=== PATIENT | female | born 1955 | race Caucasian/White ===

== ENCOUNTER 2020-04-23 11:53 | Outpatient (NON) | payer MEDICARE, SELFPAY ==
[2020-04-23 21:44] LABS: SARS-CoV-2 RNA PCR Negative
== END 2020-04-23 11:54 ==
LOC: ANHCOVIDDT 11:55
PROVIDERS: PCP Family Medicine; Visit Provider Nurse Practitioner Family
DX: R42 Dizziness and giddiness (principal); R11.0 Nausea; Z20.822 Contact with and (suspected) exposure to COVID-19
CPT/HCPCS: C9803; U0003; U0005

== ENCOUNTER 2020-06-12 11:53 | Outpatient (CLI) | payer MEDICARE, SELFPAY ==
[2020-06-12 12:20] LABS: Basophils Absolute Auto 0.1 K/mm3 (0.0-0.1); Basophils Percent Auto 0.7 % (0.2-1.2); Eosinophils Absolute Auto 0.3 K/mm3 (0-0.3); Eosinophils Percent Auto 2.6 % (0-4.4); Hematocrit 44.8 % (37.0-47.0); Hemoglobin 15.1 g/dL (12.0-15.0); Immature Granulocyte Absolute 0.02 K/mm3 (0.00-0.031); Immature Granulocyte Percent A 0.2 % (0-0.5); Lymphocytes Absolute Auto 2.61 K/mm3 (0.9-3.2); Lymphocytes Percent Auto 26.2 % (18.3-44.2); Mean Corpuscular HGB Conc 33.7 g/dl (32-36); Mean Corpuscular Hemoglobin 30.9 pg (26-34); Mean Corpuscular Volume 91.8 fl (80-100); Mean Platelet Volume 9.5 fl (7.4-10.4); Monocytes Absolute Auto 0.9 K/mm3 (0.1-0.6); Monocytes Percent Auto 8.8 % (2.6-8.5); Neutrophils Absolute Auto 6.1 K/mm3 (1.3-6.7); Neutrophils Percent Auto 61.5 % (45.5-73.1); Platelet Count Result 308 k/mm3 (150-375); Red Blood Count 4.88 M/mm3 (4.2-5.4); Red Cell Distribution Width 11.9 % (11.5-14.5)
[2020-06-12 12:42] LABS: Alanine Aminotransferase 11 U/L (4-35); Albumin Level 4.2 g/dL (3.5-5.1); Alkaline Phosphatase 95 U/L (38-126); Anion Gap 5 mmol/L (8-16); Aspartate Amino Transferase 26 U/L (14-36); Bilirubin,Total 0.5 mg/dL (0.2-1.3); Blood Urea Nitrogen 11 mg/dL (7-17); Calcium 9.7 mg/dL (8.4-10.2); Carbon Dioxide 31 mmol/L (22-30); Chloride 103 mmol/L (98-107); Estimated Glomerular Filt Rate > 60; Glucose 97 mg/dL (65-105); Magnesium 1.9 mg/dL (1.6-2.3); Potassium 4.1 mmol/L (3.4-5.0); Sodium 139 mmol/L (137-145)
== END 2020-06-12 11:54 | disposition home or self-care (01) ==
LOC: ANHLAB 11:55
PROVIDERS: PCP Family Medicine; Visit Provider Family Medicine
DX: I10 Essential (primary) hypertension (principal)
CPT/HCPCS: 36415; 80053; 83735; 84443; 85025

== ENCOUNTER → 2020-10-07 12:08 | Outpatient (CLI) | payer MEDICARE, SELFPAY ==
--- NOTE | ~2020-10-07 | MM_ITS ---
EXAMINATION: MM screening [facility] BI w jerrod HISTORY: Screening mammogram TECHNIQUE: Craniocaudal and mediolateral oblique 3-D tomosynthesis images were obtained and synthetic 2-D images were generated. CAD analysis was submitted and interpreted. COMPARISON: 08/08/2013, 07/25/2013, 04/26/2012, 04/20/2012 BREAST PARENCHYMAL COMPOSITION: The breasts are heterogeneously dense, which may obscure small masses . FINDINGS: There is no evidence of suspicious mass, calcification, or architectural distortion to sugg est malignancy in either breast. There has been no suspicious interval change. IMPRESSION: 1. No mammographic evidence of malignancy. 2. Recommend routine screening mammography in one year. BI-RADS Category 1: Negative Reviewed, dictated and finalized at location A.
--- NOTE | ~2020-10-07 | DEXA_ITS ---
Bone Density Report Name: Rosalinda Galo Age: 65 Sex: Female Ethnicity: White Date of : 1955 Indication: postmenopausal; screening for osteoporosis; asthma or emphysema; Referring Provider: Marco Antonio Beatty Study: Bone densitometry was performed. Exam Date: October 07, 2020 Accession number: [id number] Bone Density: Region BMD T-score Z-score Classification AP Spine (L1-L4) 0.986 -0.6 1.3 Normal Femoral Neck (Left) 0.783 -0.6 1.0 Normal Total Hip (Left) 0.929 -0.1 1.2 Normal Femoral Neck (Right) 0.768 -0.7 0.9 Normal Total Hip (Right) 0.946 0.0 1.3 Normal Total Hip Mean 0.938 -0.1 1.3 Normal World Health Organization criteria for BMD impression classify patients as: Normal (T-score at or above -1.0), Osteopenia (T-score between -1.0 and -2.5), or Osteoporosis (T-score at or below -2.5). 10-year Fracture Risk: FRAX not reported because: All T-scores for Spine Total, Hip Total, Femoral Neck at or above -1.0 Previous Exams: Region Exam Age BMD T-score BMD Change BMD Change Date g/cm2 vs Baseline vs Previous AP Spine(L1-L4) 10/07/2020 65 0.986 -0.6 -0.065* -0.124* 12/29/2010 55 1.111 0.6 0.059* 0.046* 10/22/2007 52 1.064 0.2 0.013 0.013 06/21/2004 49 1.051 0.0 Total Hip(Left) 10/07/2020 65 0.929 -0.1 -0.033 -0.070* 12/29/2010 55 0.999 0.5 0.037 0.017 10/22/2007 52 0.982 0.3 0.020 -0.064* 06/21/2004 49 1.046 0.9 0.084 0.084 05/03/2002 47 0.962 0.2 Total Hip(Right) 10/07/2020 65 0.946 0.0 -0.067 -0.059* 12/29/2010 55 1.006 0.5 -0.007 0.016 10/22/2007 52 0.990 0.4 -0.023 -0.066* 06/21/2004 49 1.056 0.9 0.043 0.043 05/03/2002 47 1.013 0.6 *Denotes significance at 95% confidence level, LSC for AP Spine = 0.022 g/cm2, LSC for Total Hip = 0.027 g/cm2 Clinical Information Provided by Patient: Has used the following medications: Vitamin D, Calcium Has the following medical conditions: Asthma or Emphysema Patient maximum height was 64 Menopause Age: 46 No regular weight bearing exercise Drinks caffeinated beverages Onset of menses at age 14 Number of children 2 Impression: The patient has normal bone mass. The BMD for the AP Spine(L1-L4) decreased, changing by -0.124 since
== END ==
PROVIDERS: PCP Family Medicine; Visit Provider Obstetrics & Gynecology
DX: Z12.31 Encounter for screening mammogram for malignant neoplasm of breast (principal); Z78.0 Asymptomatic menopausal state
CPT/HCPCS: 77063; 77067; 77080

== ENCOUNTER → 2021-10-05 11:02 | Outpatient (CLI) | payer MEDICARE, SELFPAY ==
--- NOTE | ~2021-10-05 | XR_ITS ---
EXAMINATION: XR thoracic spine 3V DATE: 10/05/2021 11:56 INDICATION: Thoracic spine pain TECHNIQUE: AP, lateral and lateral swimmer's views of the thoracic spine were obtained. COMPARISON: 09/29/2016 FINDINGS: Bone alignment is normal. There is no fracture. There is moderate loss of intervertebral di sc space height at multiple levels in the thoracic spine. The vertebral body heights are normal. Smal l degenerative osteophytes project from the anterior endplates of multiple vertebral bodies. IMPRESSION: 1. Moderate thoracic spondylosis without acute findings. Reviewed, dictated and finalized at location B.
--- NOTE | ~2021-10-05 | XR_ITS ---
XR hip RT min 2V DATE: 10/05/2021 11:56 INDICATION: Right hip pain TECHNIQUE: AP and lateral views COMPARISON: None FINDINGS: There is mild ostearthritis. No fracture or dislocation or bone destruction. IMPRESSION: Mild osteoarthritis Reviewed, dictated and finalized at location A. IMPRESSION: Mild osteoarthritis
--- NOTE | ~2021-10-05 | XR_ITS ---
XR lumbar spine 6V w bending DATE: 10/05/2021 11:56 INDICATION: Low back pain TECHNIQUE: AP, lateral, coned lateral lumbosacral, flexion and extension lateral views COMPARISON: None FINDINGS: There is diffuse osteopenia. There is degenerative spurring of the lower thoracic spine. There is mild likely chronic anterior wedging of L1. There is degenerative change at the apophyseal joints with grade 1 anterolisthesis at L4-5 and L5-S1. There is moderately severe degenerative disc disease at L1-2 and moderate degenerative disc disease a t the remainder of the lumbar spine. No fracture or bone destruction. The pedicles are intact. The sacroiliac joints are normal. Status post cholecystectomy. Abdominal aortic and iliac artery calcification. IMPRESSION: Osteopenia Multilevel degenerative disc disease Grade 1 anterolisthesis at L4-5 and L5-S1 Reviewed, dictated and finalized at location A.
== END ==
PROVIDERS: PCP Family Medicine; Visit Provider Family Medicine
DX: M54.50 Low back pain, unspecified (principal); M25.551 Pain in right hip; M16.11 Unilateral primary osteoarthritis, right hip; M85.88 Other specified disorders of bone density and structure, other site; M51.36 Other intervertebral disc degeneration, lumbar region; M43.17 Spondylolisthesis, lumbosacral region; M47.814 Spondylosis without myelopathy or radiculopathy, thoracic region
CPT/HCPCS: 72072; 72114; 73502

== ENCOUNTER → 2021-10-11 14:04 | Outpatient (CLI) | payer MEDICARE, SELFPAY ==
--- NOTE | ~2021-10-11 | MM_ITS ---
EXAMINATION: MM screening [facility] BI w jerrod HISTORY: Screening mammogram TECHNIQUE: Craniocaudal and mediolateral oblique 3-D tomosynthesis images were obtained and synthetic 2-D images were generated. CAD analysis was submitted and interpreted. COMPARISON: 10/07/2020, 08/08/2013, 07/25/2013 BREAST PARENCHYMAL COMPOSITION: There are scattered areas of fibroglandular density. FINDINGS: There is no suspicious mass, calcification, or architectural distortion to suggest malignan cy in either breast. There has been no suspicious interval change. IMPRESSION: 1. No mammographic evidence of malignancy. 2. Recommend routine screening mammography in one year. BI-RADS Category 1: Negative Reviewed, dictated and finalized at location A.
== END ==
PROVIDERS: PCP Family Medicine; Visit Provider Nurse Practitioner Obstetrics & Gynecology
DX: Z12.31 Encounter for screening mammogram for malignant neoplasm of breast (principal)
CPT/HCPCS: 77063; 77067

== ENCOUNTER 2022-03-15 13:40 | Outpatient (CLI) | payer MEDICARE, SELFPAY ==
--- NOTE | ~2022-03-15 | MR_ITS ---
EXAMINATION: MR lumbar spine wo con DATE: 03/15/2022 14:22 INDICATION: Lumbar radiculopathy. Low back pain radiating to the right hip. TECHNIQUE: Magnetic resonance imaging (MRI) of the lumbar spine was performed without intravenous con trast. Sequences included sagittal T2-weighted FSE, sagittal T2-weighted FS FSE, sagittal T1-weighted FSE, and axial T2-weighted FSE. COMPARISON: Lumbar spine radiographs 10/05/2021 FINDINGS: There is 7 degrees dextrocurvature of thoracolumbar spine. There is 3 mm anterolisthesis of L5 on S1. There are Schmorl's nodes at multiple levels. There is mildly decreased disc height at L3- L4, L4-L5, and L5-S1. The distal spinal cord signal intensity is normal. The conus medullaris is at L 1. The following disc levels are specifically discussed: L1-L2: The disc is bulging. There is mild bilateral facet joint osteoarthritis. There is no neural fo raminal stenosis. There is mild central canal stenosis. L2-L3: The disc is bulging. There is mild bilateral facet joint osteoarthritis. There is mild bilater al neural foraminal stenosis. There is mild central canal stenosis. L3-L4: The disc is bulging. There is mild right and moderate left facet joint osteoarthritis. There i s mild right and moderate left neural foraminal stenosis. There is mild central canal stenosis. L4-L5: The disc is bulging and has an annular fissure. There is mild bilateral facet joint osteoarthr itis. There is moderate right and mild left neural foraminal stenosis. There is mild central canal st enosis. L5-S1: The disc is bulging and has an annular fissure. There is severe bilateral facet joint osteoart hritis. There is moderate right and mild left neural foraminal stenosis. There is mild central canal stenosis. IMPRESSION: 1. Moderate lumbar spondylosis. Reviewed, dictated and finalized at location A. LCHAIR VAN DRIVER
== END 2022-03-15 13:41 | disposition home or self-care (01) ==
PROVIDERS: PCP Family Medicine; Visit Provider Family Medicine
DX: M51.36 Other intervertebral disc degeneration, lumbar region (principal); M47.816 Spondylosis without myelopathy or radiculopathy, lumbar region
CPT/HCPCS: 72148

== ENCOUNTER 2022-05-12 12:25 | Outpatient (CLI) | payer MEDICARE, SELFPAY ==
--- NOTE | ~2022-05-12 | MR_ITS ---
EXAMINATION: MR cervical spine wo con DATE: 05/12/2022 13:21 INDICATION: Neck pain. TECHNIQUE: Magnetic resonance imaging (MRI) of the cervical spine was performed without intravenous c ontrast. Sequences included sagittal T2-weighted FSE, sagittal T2-weighted FS FSE, sagittal T1-weight ed FSE, axial MERGE, and axial T2-weighted FSE. COMPARISON: None FINDINGS: There is 3 degrees dextrocurvature of cervical spine. Vertebral body heights are normal. Th ere is moderately decreased disc height at C4-C5 and C5-C6 and mildly decreased disc height at C6-C7. The spinal cord signal intensity is normal. The following disc levels are specifically discussed: C2-C3: The disc does not extend beyond the endplate margin. There is severe right uncovertebral joint osteoarthritis. There is no facet joint osteoarthritis. There is mild right neural foraminal stenosi s. There is no central canal stenosis. C3-C4: There is a central extrusion. There is mild left uncovertebral joint osteoarthritis. There is moderate left facet joint osteoarthritis. There is mild left neural foraminal stenosis. There is mild central canal stenosis with ventral indentation of the spinal cord. C4-C5: The disc is bulging. There is severe bilateral uncovertebral joint osteoarthritis. There is no facet joint osteoarthritis. There is severe bilateral neural foraminal stenosis. There is moderate c entral canal stenosis with ventral and dorsal indentation of the spinal cord. C5-C6: The disc is bulging with superimposed central extrusion. There is severe bilateral uncovertebr al joint osteoarthritis. There is no facet joint osteoarthritis. There is moderate bilateral neural f oraminal stenosis. There is severe central canal stenosis with ventral and dorsal indentation of the spinal cord. C6-C7: The disc is bulging with superimposed central extrusion. There is mild right and severe left u ncovertebral joint osteoarthritis. There is mild right and moderate left facet joint osteoarthritis. There is mild left neural foraminal stenosis. There is mild central canal stenosis. C7-T1: There is a central protrusion. There is no uncovertebral joint osteoarthritis. There is mild r ight and moderate left facet joint osteoarthritis. There is mild left neural foraminal stenosis. Ther e is mild central canal stenosis. IMPRESSION: 1. Severe cervical spondylosis. Reviewed, dictated and finalized at location A. CLEANER
--- NOTE | ~2022-05-12 | MR_ITS ---
EXAMINATION: MR hip RT wo con DATE: 05/12/2022 13:35 INDICATION: Chronic right hip pain TECHNIQUE: Magnetic resonance imaging (MRI) of the right hip was performed without intravenous contr ast. Sequences included full-field axial PD-weighted FS FSE and T1-weighted FSE, coronal of the pelvi s with PD-weighted FS FSE, small field of view of the affected hip with axial PD-weighted FS FSE, sa gittal PD-weighted FS FSE and coronal PD weighted FS FSE. Additional radial T1-weighted FGR oriented orthogonal to the acetabular rim were obtained for evaluation of the labrum. COMPARISON: None FINDINGS: Bones/labrum/cartilage: Alignment is normal. No fracture. Small peripherally low signal intensity, centrally high T1 signal intensity lesion at the left sacral ala with a low signal corresponding to dense sclerosis on the angela or CT most consistent with either a chronic bone infarct or an irregularly-shaped bone island. No oth er pathologic marrow replacing process. No osteonecrosis of the femoral heads. There is osteoarthriti s at the bilateral hips with subarticular cystlike changes consistent with overlying high-grade chond romalacia along the anterosuperior to superolateral aspects the bilateral acetabula. On the smaller f ield of view imaging of the right hip. There is corresponding mild nonuniform partial-thickness carti stewart loss and with superimposed deep chondral fissuring in the regions of the acetabular subarticular cystic change. There is a linear fluid signal intensity tear involving the majority of the right higinio tabular labrum extending from the 2:00 position anteriorly to the 8:00 position posteriorly. No defin itive tear seen of the left acetabular labrum however evaluation is significantly more limited on the larger [id number] images. Moderate lumbar spondylosis. Fluid: Symmetric physiologic amount of fluid within both hip joints. Soft tissues: Normal and symmetric muscle bulk and signal in the pelvis and visualized proximal thighs. Mild bilate ral gluteus minimus tendinopathy without tear but with associated moderate sized enthesophytes at the greater trochanteric insertions. The bilateral iliopsoas, remaining gluteal and proximal hamstring t endons are normal. Limited evaluation of visceral organs of the pelvis is unremarkable. No pathologi dianne enlarged pelvic/inguinal lymphadenopathy. IMPRESSION: 1. Mild to moderate osteoarthritis at the bilateral hips with extensive tear of the right acetabular labrum. 2. Chronic enthesopathy with enthesophytes and mild tendinopathy at the distal bilateral gluteus mini mus tendons. Reviewed, dictated and finalized at location A. AND GAS RECRUITER IMPRESSION: 1. Mild to moderate osteoarthritis at the bilateral hips with extensive tear of the right acetabular labrum. 2. Chronic enthesopathy with enthesophytes and mild tendinopathy at the distal bilateral gluteus minimus tendons.
== END 2022-05-12 12:26 | disposition home or self-care (01) ==
PROVIDERS: PCP Family Medicine; Visit Provider Nurse Practitioner Family
DX: R20.2 Paresthesia of skin (principal); M50.10 Cervical disc disorder with radiculopathy, unspecified cervical region; M16.0 Bilateral primary osteoarthritis of hip; M76.02 Gluteal tendinitis, left hip; M76.01 Gluteal tendinitis, right hip; M43.02 Spondylolysis, cervical region
CPT/HCPCS: 72141; 73721

== ENCOUNTER → 2022-07-06 09:56 | Outpatient (CLI) | payer MEDICARE, SELFPAY ==
--- NOTE | ~2022-07-06 | XR_ITS ---
EXAMINATION: XR chest 2V DATE: 07/06/2022 10:31 INDICATION: Cough. Chest tightness. TECHNIQUE: Frontal and lateral views of the chest were obtained. COMPARISON: Chest 2 views 07/28/2018, CT abdomen and pelvis 07/28/2018 FINDINGS: There is mild atelectasis in the lower lung zones. There is mild scarring at the lung apice s. No pleural effusion or pneumothorax. The heart size is normal. Surgical clips in the right upper q uadrant are likely from cholecystectomy. IMPRESSION: 1. Mild scarring at the lung apices and mild atelectasis in the lower lung zones. Reviewed, dictated and finalized at location A. IMPRESSION: 1. Mild scarring at the lung apices and mild atelectasis in the lower lung zone s.
== END ==
PROVIDERS: PCP Family Medicine; Visit Provider Nurse Practitioner Family
DX: J98.11 Atelectasis (principal); J98.4 Other disorders of lung; R05.9 Cough, unspecified; R07.89 Other chest pain; J44.9 Chronic obstructive pulmonary disease, unspecified; Z87.891 Personal history of nicotine dependence
CPT/HCPCS: 71046

== ENCOUNTER 2022-07-15 15:17 | Outpatient (CLI) | payer MEDICARE, SELFPAY ==
[2022-07-15 15:54] LABS: Appearance Urine Clear (Clear); Bilirubin Urine Negative (Negative); Blood Urine Negative (Negative); Color Urine Yellow (Yellow); Glucose Urine UA Negative (Negative); Ketones Urine Negative (Negative); Leukocyte Esterase Ur Negative LEU/UL (NEGATIVE); Nitrate Urine Negative (Negative); Protein Urine Negative (Negative); Specific Grav Ur 1.006 (1.001-1.035); Urobilinogen Urine 0.2 mg/dL (<2.0)
[2022-07-15 16:15] LABS: Add Urine Microscopic? NO
== END 2022-07-15 15:18 | disposition home or self-care (01) ==
PROVIDERS: PCP Family Medicine
DX: Z01.818 Encounter for other preprocedural examination (principal)
CPT/HCPCS: 81003

== ENCOUNTER 2022-12-09 09:33 | Outpatient (CLI) | payer MEDICARE, SELFPAY ==
--- NOTE | 2022-12-09 10:04 | EST_ITS ---
Patient Info Name: Rosalinda Galo Age: 67 years : 1955 Gender: Female Ht: 62 in Wt: 160 lbs BSA: 1.81 m2 HR: 83 bpm BP: 143 / 79 mmHg Exam Date: 12/09/2022 10:14 AM Exam Location: [facility] Stress Patient Status: Outpatient Admit Date: 12/09/2022 Staff Ordering Physician: Elvira Benjamin Attending Provider: Elvira Benjamin Exercise Technologist: Jessica Diane CT Exercise Physician: Aba Olmos DO Exam Type: CA stress test treadmill Study Info An exercise stress test was performed. Summary 1. 1. Negative Seamus exercise stress test for ischemic ST changes by ECG criteria. 2. 2. Reduced functional capacity, achieving 6 METs of workload. 3. 3. Baseline hypertension. 4. 4. Appropriate HR response to exercise. 5. 5. Appropriate HR recovery at 1 minute post exercise. 6. 6. No imaging with stress testing. 7. 7. Patient informed of the above results. Protocol: Seamus Stress ECG Details Stage: REST Duration (min): 1 min : 58 sec Speed (mph): 0.0 Grade (%): 0 HR (bpm): 86 SBP (mmHg): 143 DBP (mmHg): 79 METS: --- Stage: REST Duration (min): 9 min : 46 sec Speed (mph): 0.0 Grade (%): 0 HR (bpm): 105 SBP (mmHg): 143 DBP (mmHg): 79 METS: --- Stage: STAGE 1 Duration (min): 1 min : 0 sec Speed (mph): 1.7 Grade (%): 10 HR (bpm): 114 SBP (mmHg): 143 DBP (mmHg): 79 METS: --- Stage: STAGE 1 Duration (min): 2 min : 0 sec Speed (mph): 1.7 Grade (%): 10 HR (bpm): 122 SBP (mmHg): 143 DBP (mmHg): 79 METS: --- Stage: STAGE 1 Duration (min): 3 min : 0 sec Speed (mph): 1.7 Grade (%): 10 HR (bpm): 125 SBP (mmHg): 186 DBP (mmHg): 98 METS: --- Stage: STAGE 2 Duration (min): 1 min : 0 sec Speed (mph): 2.5 Grade (%): 12 HR (bpm): 136 SBP (mmHg): 186 DBP (mmHg): 98 METS: --- Stage: STAGE 2 Duration (min): 1 min : 2 sec Speed (mph): 2.5 Grade (%): 12 HR (bpm): 136 SBP (mmHg): 186 DBP (mmHg): 98 METS: --- Stage: RECOVERY Duration (min): 0 min : 57 sec Speed (mph): 0.0 Grade (%): 0 HR (bpm): 120 SBP (mmHg): 190 DBP (mmHg): 91 METS: --- Stage: RECOVERY Duration (min): 1 min : 42 sec Speed (mph): 0.0 Grade (%): 0 HR (bpm): 109 SBP (mmHg): 190 DBP (mmHg): 91 METS: --- Rest HR: 105 bpm Peak HR: 136 bpm Rest Sys BP: 143 mmHg Peak Sys BP: 190 mmHg Max Pred HR: 152 bpm % Max Pred HR: 89 % Target HR: 129 bpm Max RPP: 25,840 bpm*mmHg Tucker Score: 0 Termination Reason: Reached target heart rate or workload Cardiac Symptoms: Shortness of breath Max ST Seg Deviation: -0.90 mm Total Time: 4 min : 2 sec Rest Hewitt BP: 79 mmHg Peak Hewitt BP: 91 mmHg Angina Score: None Total METS: 6.5 Resting ECG Sinus rhythm. Stress ECG No ST changes. Arrhythmias None. Report Signatures
== END 2022-12-09 09:34 | disposition home or self-care (01) ==
LOC: ANHCARD 09:34
PROVIDERS: PCP Family Medicine; Visit Provider Nurse Practitioner Family
DX: E78.2 Mixed hyperlipidemia (principal); K21.9 Gastro-esophageal reflux disease without esophagitis; R07.89 Other chest pain
CPT/HCPCS: 93017

== ENCOUNTER 2023-09-27 14:31 | Emergency (ER) | payer MEDICARE, SELFPAY ==
--- NOTE | ~2023-09-27 | XR_ITS ---
EXAMINATION: XR chest 2V DATE: 09/27/2023 14:51 INDICATION: Stabbing chest pain TECHNIQUE: AP and lateral views of the chest were obtained. COMPARISON: Chest radiograph dated 07/06/2022 FINDINGS: Linear discoid atelectasis is seen in the bilateral lower lungs on the frontal projection. There are additional indistinct and mild airspace opacities in the posterior lower lungs on the lateral project ion. No pleural effusion or pneumothorax. Cardiomediastinal silhouette is within normal limits for AP technique. Cholecystectomy clips in right upper quadrant. Plate and screw fixation for lower cervica l anterior spinal fusion. Moderate thoracic spondylosis. IMPRESSION: 1. Opacities at the dependent bilateral lower lungs which could represent atelectasis, pneumonia or m ild pulmonary edema. Reviewed, dictated and finalized at location B. IMPRESSION: 1. Opacities at the dependent bilateral lower lungs which could represent atele ctasis, pneumonia or mild pulmonary edema.
--- NOTE | 2023-09-27 14:32 | ECG_ITS ---
Test Date: 2023-09-27 14:38:52 Measurements Intervals [place] Rate: 79 P: 41 DE: 165 QRS: -15 QRSD: 98 T: 12 QT: 358 QTc: 412 Interpretive Statements SINUS RHYTHM MODERATE VOLTAGE CRITERIA FOR LVH, CONSIDER NORMAL VARIANT [MEETS CRITERIA IN ONE OF: R(aVL), S(V1), R(V5), R(V5/V6)+S(V1)] No previous ECG available for comparison Electronically Signed On 09-28-2023 13:29:54 CDT by Maureen Arroela M.D.
[2023-09-27 14:37] VITALS: BP 138/85; PULSE 83; RESP 20; TEMP 36.6; O2SAT 100
[2023-09-27 14:46] LABS: Basophils Absolute Auto 0.1 K/mm3 (0.0-0.1); Basophils Percent Auto 0.7 % (0.2-1.2); Eosinophils Absolute Auto 0.3 K/mm3 (0-0.3); Eosinophils Percent Auto 2.2 % (0-4.4); Hematocrit 43.5 % (37.0-47.0); Hemoglobin 14.4 g/dL (12.0-15.0); Immature Granulocyte Absolute 0.05 K/mm3 (0.00-0.031); Immature Granulocyte Percent A 0.3 % (0-0.5); Lymphocytes Absolute Auto 4.51 K/mm3 (0.9-3.2); Lymphocytes Percent Auto 30.6 % (18.3-44.2); Mean Corpuscular HGB Conc 33.1 g/dl (32-36); Mean Corpuscular Hemoglobin 30.9 pg (26-34); Mean Corpuscular Volume 93.3 fl (80-100); Mean Platelet Volume 9.4 fl (7.4-10.4); Monocytes Absolute Auto 1.3 K/mm3 (0.1-0.6); Monocytes Percent Auto 8.9 % (2.6-8.5); Neutrophils Absolute Auto 8.4 K/mm3 (1.3-6.7); Neutrophils Percent Auto 57.3 % (45.5-73.1); Platelet Count Result 300 k/mm3 (150-375); Red Blood Count 4.66 M/mm3 (4.2-5.4); Red Cell Distribution Width 11.9 % (11.5-14.5); White Blood Count 14.8 K/mm3 (4.5-10.0)
[2023-09-27 14:49] VITALS: PULSE 74
[2023-09-27 14:57] LABS: Alanine Aminotransferase 7 U/L (6-35); Albumin Level 4.5 g/dL (3.5-5.1); Alkaline Phosphatase 90 U/L (38-126); Anion Gap 9 mmol/L (4-12); Aspartate Amino Transferase 84 U/L (14-36); Bilirubin,Total 0.5 mg/dL (0.2-1.3); Blood Urea Nitrogen 17 mg/dL (7-17); Carbon Dioxide 26 mmol/L (22-30); Chloride 103 mmol/L (98-107); Estimated CRCL calculation 50 ml/min; Estimated Glomerular Filt Rate > 60; Glucose 97 mg/dL (65-110); INR 0.9; Lipase 97 U/L (23-300); Potassium 3.7 mmol/L (3.4-5.0); Prothrombin Time 12.5 Seconds (11.1-14.7); Sodium 138 mmol/L (137-145)
[2023-09-27 15:09] LABS: Troponin I < 0.012 ng/mL (0.000-0.034)
[2023-09-27 15:26] VITALS: BP 138/71; PULSE 86; RESP 21; O2SAT 95
--- NOTE | 2023-09-27 15:26 | ED.CHESTPAIN ---
HPI - Chest Pain General Chief Complaint: Chest Pain Stated Complaint: chest pain Time Seen by Provider: 09/27/23 15:25 Source: patient Mode of arrival: ambulatory Limitations: no limitations History of Present Illness HPI narrative: This is a 68 year old female that presents to the ER for chest pain. Reports she was seated in the car when she started to experience sharp, stabbing substernal chest pain. They had just ate [employer]. She was feeling nauseous. Reports the pain lasted for about a half hour, then subsided without intervention. Reports a cough. Denies fever, or shortness of breath. Related Data Home Medications Medication Instructions Recorded Confirmed cetirizine 10 mg capsule (Zyrtec) 10 mg PO DAILY PRN 11/22/22 04/07/23 meloxicam 15 mg tablet 15 mg PO DAILY 04/07/23 04/07/23 Allergies Allergy/AdvReac Type Severity Reaction Status Date / Time poison oak extract Allergy Intermediate Rash Verified 09/27/23 14:59 poison sumac extract Allergy Intermediate Rash Verified 09/27/23 14:59 bupropion Allergy Mild Hives Verified 09/27/23 14:59 poison tray extract AdvReac Intermediate Rash Verified 09/27/23 14:59 PMF Past Medical History Medical History Abdominal distention Acute bronchitis due to other specified organisms Acute cystitis with hematuria Anxiety BMI 26.0-26.9,adult BMI 26.0-26.9,adult Body mass index [BMI] 26.0-26.9, adult (11/17/17) Chronic cough Chronic neck pain Cystitis Dietary counseling and surveillance (10/11/16) Elevated AST (SGOT) Epigastric pain Flu vaccine need Hematuria Insomnia Lumbar pain Lung granuloma Mixed hyperlipidemia Neck muscle spasm Other chronic pain Other symptoms and signs involving emotional state Pain of upper abdomen Pre-op exam Right flank pain Right hip pain Screening for colon cancer SOB (shortness of breath) Thoracic back pain Thrush, oral Tremor Trigger finger of left thumb Vaginal bleeding Family History Family History Father Mother COPD (chronic obstructive pulmonary disease) Sibling Lung cancer Social History Social History (Reviewed 11/24/22 @ 16:51 by LARRY Templeton Smoking packs per day: 1 Smoking cigarettes per day: 20.0 Years smoked: 10 Smoking pack-years: 10.00 Smoking status: Former smoker Second hand tobacco smoke exposure: Yes Smoking end date: 10/01/83 Alcohol intake: never Substance use: never Substance use type: does not use Lack of Transportation: No Lack of Food: Never True Current Housing: I Have Housing Concerned About Future Housing: No Difficulty Paying Gas/Electric Bills: No Difficulty Paying for Meds: No Currently Unemployed: No Education: High School Diploma/GED Difficulty w/ Childcare or Family Care: No Living arrangements: with family Occupation/Education: retired 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 HEAD: Normocephalic, atraumatic. EYES: EOMI. ENT: Nares clear, no rhinorrhea or epistaxis. Mucous membranes moist. NECK: No JVD CHEST: No respiratory distress. Rales in the right lower lobe. No wheezes or rhonchi HEART: Regular rate and rhythm. No murmur heard. Normal peripheral pulses. EXTREMITIES: Normal range of motion. No edema. SKIN: Warm, dry, no rash. NEURO: No focal deficits. Alert and oriented x3. PSYCH: Normal mood and affect Course Course Emergency Course: patient and family updated on workup and agree with plan of care Consultations Consultation #1: Spoke with Dr. Olmos about patient and workup who will follow up in clinic in the next week Date: 09/27/23 Vital Signs Vital signs: Vital Signs Temperature 97.8 F 09/27/23 14:37 Pulse Rate 83
[2023-09-27] MEDS: ONDANSETRON INJ 4 MG/2 ML VIAL IV PUSH (16:09)
[2023-09-27] MEDS: FAMOTIDINE 20 MG/2 ML VIAL IV PUSH (16:09)
[2023-09-27 16:10] VITALS: BP 137/67; PULSE 95; RESP 24; O2SAT 97
[2023-09-27 16:12] LABS: NT Pro B Type Natriuretic Pept 27 pg/mL (19.9-100)
--- NOTE | 2023-09-27 17:19 | ECG_ITS ---
Test Date: 2023-09-27 17:26:17 Measurements Intervals [place] Rate: 89 P: 35 MA: 156 QRS: -15 QRSD: 97 T: 23 QT: 355 QTc: 434 Interpretive Statements SINUS RHYTHM MODERATE VOLTAGE CRITERIA FOR LVH, CONSIDER NORMAL VARIANT [MEETS CRITERIA IN ONE OF: R(aVL), S(V1), R(V5), R(V5/V6)+S(V1)] Compared to ECG 09/27/2023 14:38:52 No significant changes Electronically Signed On 09-28-2023 13:31:38 CDT by Maureen Arreola M.D.
[2023-09-27 17:50] LABS: Troponin I < 0.012 ng/mL (0.000-0.034)
[2023-09-27 18:56] VITALS: BP 141/70; PULSE 90; RESP 20; O2SAT 98
== END 2023-09-27 18:58 | disposition home or self-care (01) ==
PROVIDERS: Emergency Medicine; Emergency Provider Physician Assistant; PCP Family Medicine
DX: J18.9 Pneumonia, unspecified organism (principal); R07.2 Precordial pain; E78.2 Mixed hyperlipidemia; Z87.891 Personal history of nicotine dependence; Z79.899 Other long term (current) drug therapy
CPT/HCPCS: 36415; 71046; 80053; 83690; 83880; 84484; 85025; 85610; 85730; 93005; 96374; 96375; 99284; J2405

== ENCOUNTER 2023-10-02 20:27 | Emergency (ER) | payer MEDICARE, SELFPAY ==
--- NOTE | ~2023-10-02 | XR_ITS ---
EXAMINATION: XR chest 2V Exam Date/Time: 10/02/2023 20:48 CDT HISTORY: medial chest pain x2 hrs Comparison: 09/27/2023. RESULT: Lines, tubes, and devices: Cervical fusion hardware.. Lungs and pleura: Minimal bibasilar scar/atelectasis, otherwise clear. Cardiomediastinal silhouette: Stable. Other: No acute osseous or upper abdominal finding. IMPRESSION: No acute cardiopulmonary process. Reviewed, dictated and finalized at location K.
--- NOTE | 2023-10-02 20:28 | ECG_ITS ---
Test Date: 2023-10-02 20:34:06 Measurements Intervals [place] Rate: 90 P: 28 MT: 198 QRS: -12 QRSD: 98 T: 33 QT: 364 QTc: 447 Interpretive Statements SINUS RHYTHM INCOMPLETE RIGHT BUNDLE BRANCH BLOCK LEFT VENTRICULAR HYPERTROPHY MINIMAL Q WAVES- HIGH LATERAL LEADS BASELINE ARTIFACT- I, II, III, AVR, AVL, AVF, V3-V6 BORDERLINE ECG Compared to ECG 09/27/2023 17:26:17 No significant changes Electronically Signed On 10-02-2023 20:37:54 CDT by Aba Olmos D.O.
[2023-10-02] MEDS: ASPIRIN 81 MG CHEWABLE TABLET 324 MG PO (20:32)
[2023-10-02 20:41] VITALS: BP 171/73; PULSE 94; RESP 22; TEMP 36.1; O2SAT 97
[2023-10-02 20:54] LABS: Basophils Absolute Auto 0.1 K/mm3 (0.0-0.1); Basophils Percent Auto 0.5 % (0.2-1.2); Eosinophils Absolute Auto 0.2 K/mm3 (0-0.3); Eosinophils Percent Auto 1.3 % (0-4.4); Hematocrit 45.8 % (37.0-47.0); Hemoglobin 15.2 g/dL (12.0-15.0); Immature Granulocyte Percent A 0.6 % (0-0.5); Lymphocytes Absolute Auto 2.24 K/mm3 (0.9-3.2); Mean Corpuscular HGB Conc 33.2 g/dl (32-36); Mean Corpuscular Hemoglobin 30.7 pg (26-34); Mean Corpuscular Volume 92.5 fl (80-100); Mean Platelet Volume 9.6 fl (7.4-10.4); Monocytes Absolute Auto 1.3 K/mm3 (0.1-0.6); Monocytes Percent Auto 7.6 % (2.6-8.5); Neutrophils Absolute Auto 13.3 K/mm3 (1.3-6.7); Platelet Count Result 295 k/mm3 (150-375); Red Blood Count 4.95 M/mm3 (4.2-5.4); White Blood Count 17.3 K/mm3 (4.5-10.0)
[2023-10-02 21:05] LABS: Alanine Aminotransferase 32 U/L (6-35); Albumin Level 4.8 g/dL (3.5-5.1); Alkaline Phosphatase 198 U/L (38-126); Anion Gap 8 mmol/L (4-12); Aspartate Amino Transferase 214 U/L (14-36); Bilirubin,Total 0.9 mg/dL (0.2-1.3); Blood Urea Nitrogen 13 mg/dL (7-17); Calcium 9.6 mg/dL (8.4-10.2); Carbon Dioxide 29 mmol/L (22-30); Chloride 103 mmol/L (98-107); Estimated CRCL calculation 54 ml/min; Estimated Glomerular Filt Rate > 60; Glucose 127 mg/dL (65-110); INR 0.9; Lipase 201 U/L (23-300); Prothrombin Time 12.3 Seconds (11.1-14.7); Sodium 140 mmol/L (137-145)
[2023-10-02 21:06] LABS: Partial Thromboplastin Time 28.8 Seconds (22.3-36.8)
[2023-10-02 21:07] VITALS: O2SAT 97
[2023-10-02 21:08] VITALS: BP 173/95; PULSE 91; RESP 21; TEMP 36.2; O2SAT 96
[2023-10-02 21:16] LABS: Troponin I < 0.012 ng/mL (0.000-0.034)
--- NOTE | 2023-10-02 21:43 | ED.CHESTPAIN ---
HPI - Chest Pain General Chief Complaint: Chest Pain Stated Complaint: chest pain Time Seen by Provider: 10/02/23 21:33 History of Present Illness HPI narrative: Patient is a 68-year-old female with history of anxiety, GERD, COPD here with midsternal chest pain. She states that for about 1-1/2 hour prior to presentation she started experiencing midsternal chest pain which radiated into her epigastric region. She notes that the pain was initially a 10/10 and has completely resolved after receiving a dose of aspirin on arrival to the ER. She denies any associated shortness of breath, diaphoresis, nausea. She does have a history of GERD, takes omeprazole. She notes this is her 3rd episode in the last 1 month with the most recent being 2 days ago. She had a normal cardiac workup at that time, the case was discussed with [facility] Dr. Olmos, recommended outpatient follow-up. Patient was also started on antibiotics for possible pneumonia. She notes she has a chronic cough which is not increased or decreased from baseline, does not notice any difference after starting antibiotics. She currently states she feels well and would prefer to not be hospitalized if possible. Related Data Home Medications Medication Instructions Recorded Confirmed cetirizine 10 mg capsule (Zyrtec) 10 mg PO DAILY PRN 11/22/22 04/07/23 meloxicam 15 mg tablet 15 mg PO DAILY 04/07/23 04/07/23 Allergies Allergy/AdvReac Type Severity Reaction Status Date / Time poison oak extract Allergy Intermediate Rash Verified 09/27/23 14:59 poison sumac extract Allergy Intermediate Rash Verified 09/27/23 14:59 bupropion Allergy Mild Hives Verified 09/27/23 14:59 poison tray extract AdvReac Intermediate Rash Verified 09/27/23 14:59 Review of Systems Review of Systems: All systems reviewed & are unremarkable except as noted in HPI and below PMFSH Past Medical History Medical History Abdominal distention Acute bronchitis due to other specified organisms Acute cystitis with hematuria Anxiety BMI 26.0-26.9,adult BMI 26.0-26.9,adult Body mass index [BMI] 26.0-26.9, adult (11/17/17) Chronic cough Chronic neck pain Cystitis Dietary counseling and surveillance (10/11/16) Elevated AST (SGOT) Epigastric pain Flu vaccine need Hematuria Insomnia Lumbar pain Lung granuloma Mixed hyperlipidemia Neck muscle spasm Other chronic pain Other symptoms and signs involving emotional state Pain of upper abdomen Pre-op exam Right flank pain Right hip pain Screening for colon cancer SOB (shortness of breath) Thoracic back pain Thrush, oral Tremor Trigger finger of left thumb Vaginal bleeding Family History Family History Father Mother COPD (chronic obstructive pulmonary disease) Sibling Lung cancer Social History Social History Smoking packs per day: 1 Smoking cigarettes per day: 20.0 Years smoked: 10 Smoking pack-years: 10.00 Smoking status: Former smoker Second hand tobacco smoke exposure: Yes Smoking end date: 10/01/83 Alcohol intake: never Substance use: never Substance use type: does not use Lack of Transportation: No Lack of Food: Never True Current Housing: I Have Housing Concerned About Future Housing: No Difficulty Paying Gas/Electric Bills: No Difficulty Paying for Meds: No Currently Unemployed: No Education: High School Diploma/GED Difficulty w/ Childcare or Family Care: No Living arrangements: with family Occupation/Education: retired 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 HEAD: Normocephalic, atraumatic. EYES: PERRLA and EOMI. ENT: Nares clear. Mucous
[2023-10-02 22:00] VITALS: BP 148/70; PULSE 95; RESP 21; O2SAT 96
[2023-10-02 23:02] VITALS: BP 183/93; PULSE 95; PULSE 97; RESP 16; O2SAT 98
--- NOTE | 2023-10-02 23:28 | ECG_ITS ---
Test Date: 2023-10-02 23:31:12 Measurements Intervals [place] Rate: 100 P: 44 NH: 182 QRS: -4 QRSD: 94 T: 38 QT: 346 QTc: 446 Interpretive Statements SINUS TACHYCARDIA INCOMPLETE RIGHT BUNDLE BRANCH BLOCK VOLTAGE CRITERIA FOR LVH MINIMAL Q WAVES- HIGH LATERAL LEADS BASELINE ARTIFACT- II, III, AVF BORDERLINE ECG Compared to ECG 10/02/2023 20:34:06 NO SIGNIFICANT CHANGE Electronically Signed On 10-03-2023 06:27:43 CDT by Aba Olmos D.O.
[2023-10-02] MEDS: BELLADONNA ALK/PHENOB ELIX 10 ML, MAG HYDROX/ALUMINUM HYD/SIMETH 30 ML, LIDOCAINE HCL 2... PO (23:43)
[2023-10-02 23:59] LABS: Troponin I < 0.012 ng/mL (0.000-0.034)
[2023-10-03 01:41] LABS: Hepatitis B Surface Antigen Negative (Negative)
[2023-10-03 01:46] LABS: HAV RESULT Negative (Negative); Hepatitis B Core IgM Result Negative (Negative)
[2023-10-03 01:58] LABS: Hepatitis C Virus Antibody Negative (Negative)
== END 2023-10-03 00:41 | disposition home or self-care (01) ==
PROVIDERS: Emergency Provider Student in an Organized Health Care Education/Training Program; PCP Family Medicine
DX: R79.89 Other specified abnormal findings of blood chemistry (principal); D72.829 Elevated white blood cell count, unspecified; R07.89 Other chest pain; J44.9 Chronic obstructive pulmonary disease, unspecified; E78.2 Mixed hyperlipidemia; Z87.891 Personal history of nicotine dependence
CPT/HCPCS: 36415; 71046; 80053; 80074; 83690; 84484; 85025; 85610; 85730; 93005; 99284; A9270

== ENCOUNTER 2023-10-09 10:22 | Outpatient (CLI) | payer MEDICARE, SELFPAY ==
--- NOTE | ~2023-10-09 | US_ITS ---
Abdominal Sonogram: Real-time sonographic imaging of the abdomen was performed. Clinical History: Leukocytosis Findings: The liver appears normal with no evidence of mass lesion or bile duct dilatation. Main por jr vein demonstrates normal direction of flow. The spleen is normal in size without evidence of foca l lesion. The gallbladder is absent, compatible prior cholecystectomy. The common bile duct measures 5 mm. The visualized pancreas, aorta, and IVC are unremarkable. The right kidney measures 8.4 cm i n length and the left kidney measures 9.0 cm. There is no hydronephrosis or renal calculus. Impression: Status post cholecystectomy, otherwise unremarkable abdominal ultrasound. Reviewed, dictated and finalized at location . Impression: Status post cholecystectomy, otherwise unremarkable abdominal ultrasound.
--- NOTE | ~2023-10-09 | XR_ITS ---
Clinical Indication: Chest pain PA and lateral views of the chest: Comparison: 10/02/2023 Findings: The lungs are clear, without evidence of focal consolidation or pleural effusion. Cardiome diastinal silhouette is within normal limits. Bones and soft tissues are unremarkable. Impression: Normal chest. Reviewed, dictated and finalized at location . Impression: Normal chest.
== END 2023-10-09 10:23 ==
LOC: MICIMG 10:24
PROVIDERS: PCP Family Medicine; Visit Provider Nurse Practitioner Family
DX: D72.829 Elevated white blood cell count, unspecified (principal); J18.9 Pneumonia, unspecified organism; Z90.49 Acquired absence of other specified parts of digestive tract
CPT/HCPCS: 71046; 76700

== ENCOUNTER 2023-10-27 10:07 | Outpatient (CLI) | payer MEDICARE, SELFPAY ==
--- NOTE | ~2023-10-27 | CT_ITS ---
EXAMINATION: CT abdomen wo/w con DATE: 10/27/2023 10:45 INDICATION: Abnormal liver enzymes. Lower midsternal pain. TECHNIQUE: Computed tomography (CT) of the abdomen was performed without intravenous contrast. Automa [place] exposure control and iterative reconstruction technique were employed. Exam dose: 1157.79 mGy-cm total exam DLP. COMPARISON: None. FINDINGS: Emphysematous changes of the lungs. Scattered discoid atelectasis and/or scarring at the included lower lung zones. Mild chronic anterior wedge compression fracture of L2. Diffuse idiopathic skeletal hyperostosis of t he thoracic spine. Status post cholecystectomy. The common bile duct measures 7 mm. There is pneumobilia. No hepatic, splenic, pancreatic space occupying mass lesion. No pancreatic calcification or pancreati c duct dilatation. Normal morphology of the adrenal glands. No renal mass lesion or urinary tract calculus or hydroureteronephrosis is detected. The urinary blad sandie is unremarkable. Retroverted uterus. Adnexal areas are unremarkable. Mild colonic diverticulosis; no CT evidence of diverticulitis. No bowel obstruction or intraperitonea l free air. Normal appendix. There is atherosclerotic calcification and plaque of the abdominal aorta but no abdominal aortic aneu rysm. No intraperitoneal or retroperitoneal or pelvic mass lesion or adenopathy or ascites is detecte d. Very small fat-containing inguinal hernia. IMPRESSION: Emphysema Scattered discoid atelectasis and/or scarring in the lower lung zones Status post cholecystectomy; pneumobilia Retroverted uterus Mild colonic diverticulosis Normal appendix Mild chronic anterior wedge compression fracture of L2 Reviewed, dictated and finalized at Location A. Reviewed, dictated and finalized at location J.
== END 2023-10-27 10:08 | disposition home or self-care (01) ==
PROVIDERS: PCP Family Medicine; Visit Provider Nurse Practitioner Family
DX: D72.829 Elevated white blood cell count, unspecified (principal); R74.8 Abnormal levels of other serum enzymes; J43.9 Emphysema, unspecified; K57.30 Diverticulosis of large intestine without perforation or abscess without bleeding; R91.8 Other nonspecific abnormal finding of lung field; N85.4 Malposition of uterus; S32.020A Wedge compression fracture of second lumbar vertebra, initial encounter for closed fracture; X58.XXXA Exposure to other specified factors, initial encounter; Z90.49 Acquired absence of other specified parts of digestive tract
CPT/HCPCS: 74170; Q9967

== ENCOUNTER 2024-04-23 14:54 | Outpatient (CLI) | payer MEDICARE, SELFPAY ==
--- NOTE | ~2024-04-23 | MM_ITS ---
EXAMINATION: MM screening guille BI w jerrod HISTORY: Screening TECHNIQUE: Craniocaudal and mediolateral oblique 3-D tomosynthesis images were obtained and synthetic 2-D images were generated. CAD analysis was submitted and interpreted. COMPARISON: Comparison to multiple prior studies sequentially, with oldest reviewed study dated 10/2020. BREAST PARENCHYMAL COMPOSITION: Not dense: There are scattered areas of fibroglandular density. FINDINGS: There is no evidence of suspicious mass, calcification, or architectural distortion to sugg est malignancy in either breast. There has been no suspicious interval change. IMPRESSION: 1. No mammographic evidence of malignancy. 2. Recommend routine screening mammography in one year. BI-RADS Category 1: Negative Reviewed, dictated and finalized at location A. OR NURSE MANAGER
== END 2024-04-23 14:55 | disposition home or self-care (01) ==
LOC: MICIMG 14:57
PROVIDERS: PCP Family Medicine; Visit Provider Nurse Practitioner Family
DX: Z12.31 Encounter for screening mammogram for malignant neoplasm of breast (principal)
CPT/HCPCS: 77063; 77067

== ENCOUNTER 2025-01-17 11:34 | Outpatient (CLI) | payer MEDICARE, SELFPAY ==
--- OUTSIDE RECORDS SUMMARY | 2023-09-16 16:30 | XMS_ITS ---
Author Organization [employer] [facility] [place] ([phone]) Address [address] [place] [address] Care Team Providers Care Precision Devices Inspector/Tester Name Role Phone Anabell LION, Rob Primary Care Provider Unavaila Ulises Ornelas Unavailable [phone] Jake Tavera Unavailable Unavailable [employer], Provider Unavailable Unavailab le Allergies Allergen (clinical drug ingredient) Drug/Non Drug Allergy documented on EMR Reaction Allergy Type Onset Date Status WELLBUTRIN (uncoded) rash Allergy Active REASON FOR VISIT [facility] Encounter Medications Medication SIG (Take, Route, Frequency, Duration) Notes Start Date End Date Status ProAir RespiClick 90 MCG 2 PUFFS Q 4-6 HOURS PER ASTHMA ACTION PLAN INHALED Q4-6 HOURS, PRN AND PER THE ASTHMA ACTION PLAN; Duration: 30 DAYS *Please review and pick correct strength-formulat ion from [facility] options. If intended option is not shown, discontinue and re-order from Quick Search* Active Spiriva Respimat 2.5 MCG/ACT 2 puff(s) inhaled once a day; Duration: 90 days Active SIT (TRADITIONAL) VARIABLE PER SCHEDULE SC PER SCHEDULE; Duration: TO BE DETERMINED *Please review for potential replacement for e-prescription and drug interaction check* 07/03/2017 Active Advair HFA 115-21 MCG/ACT 2 puff(s) inhaled 2 times a day; Duration: 30 day(s) Active AEROCHAMBER PLUS DIRECTED *Please review for potential replacement for e-prescription and drug interaction check* Active Fluticasone Propionate 50 MCG/ACT 2 spray(s) intranasally once a day; Duration: 90 days Active ZyrTEC Allergy 10 MG 1 tab(s) orally onc e a day Active NASAL WASHES N/A DIRECTED INTRANASALLY NEEDED; Duration: 30 *Please review for potential replacement for e-prescription and drug interaction check* Active PROAIR HFA 90 MCG/INH USE 2 TO 4 INHALATIONS EVERY 4 TO 6 HOURS NEEDED AND PER THE ASTHMA ACTION PLAN EVERY 4 TO 6 HOURS NEEDED (INHALED WITH SPACER) *Please review for potential replacement for e-prescription and drug interaction check* Active Auvi-Q 0.3 MG/0.3ML 0.3 mg intramuscularly once; Duration: 1 dose(s) 07/03/2017 Active Vitamin D3 50 MCG (2000 UT) 2 cap(s) orally once a day Active TESSALON PERLES 100 MG 1 CAP(S) ORALLY PRN *Please review for potential replacement for e-prescription and drug interaction check* Active Singulair 10 MG 1 tab(s) orally once a day Active Flonase Allergy Relief 50 MCG/ACT 2 spray(s) intranasally once a day Active Spiriva Respimat 2.5 MCG/ACT 2 puff(s) inhaled once a day Active NexIUM 40 MG 1 cap(s) orally once a day Active predniSONE 20 MG 2 tab(s) orally once a dayx 2 weeks then keep remaining on hand for future use; Duration: 14 days Active PROAIR HFA CFC FREE 90 MCG/INH INHALE 2 PUFFS Q 6 H PRF WHEEZING; Duration: 25 *Please review for potential replacement for e-prescription and drug interaction check* Active ZyrTEC Allergy 10 MG 1 tab(s) orally onc e a day Active ALPRAZolam 0.5 MG (Schedule IV Drug) T K 1 T PO TID PRN; Duration: 20 Active Estradiol 1 MG 1 tab(s) orally once a day Active Amitriptyline HCl 25 MG 1 tab(s) orally once a day (at bedtime) Active Progesterone 100 MG 2 cap(s) orally once a day (at bedtime) Active Nucala 100 MG 100 MG SUBCUTANEOUSL Y EVERY 4 WEEKS; Duration: 90 DAYS *Please review and pick correct strength-formulat ion from [email or web address] options. If intended option is not shown, discontinue and re-order from Quick Search* 07/14/2017 Active Simvastatin 20 MG 1 tab(s) orally once a day (at bedtime) Active Encounters Encounter Location Date Provider Diagnosis JORGE A Beyer [address] [place], [place] [address] [address] 09/16/2023 Provider Verna Severe persistent asthma, uncomplicated J45.50 ; Allergic rhinitis due to pollen J30.1 and Gastro-esophageal reflux disease without esophagitis K21.9 Assessments Encounter Date Diagnosis (ICD Code) Assessment Notes Treatment Notes Treatment Clinical Notes Section Notes 09/16/2023 Severe persistent asthma, uncomplicated (ICD-10 - J45.50) 09/16/2023 Allergic rhinitis due to pollen (ICD-10 - J30.1) 09/16/2023 Gastro-esophageal reflux disease without esophagitis (ICD-10 - K21.9) Plan Of Treatment Medication Medication Name Sig Start Date Stop Date Notes ProAir RespiClick 90 MCG 2 PUFFS Q 4-6 HOURS PER ASTHMA ACTION PLAN INHALED Q4-6 HOURS, PRN AND PER THE ASTHMA ACTION PLAN; Duration: 30 DAYS *Please review and pick correct strength-formulatio n from [email or web address] options. If intended option is not shown, discontinue and re-order from Quick Search* Spiriva Respimat 2.5 MCG/ACT 2 puff(s) inhaled once a day; Duration: 90 days SIT (TRADITIONAL) VARIABLE PER SCHEDULE SC PER SCHEDULE; Duration: TO BE DETERMINED 07/03/2017 *Please review for potential replacement for e-prescription and drug interaction check* Advair HFA 115-21 MCG/ACT 2 puff(s) inhaled 2 times a day; Duration: 30 day(s) AEROCHAMBER PLUS DIRECTED *Please review for potential replacement for e-prescription and drug interaction check* Fluticasone Propionate 50 MCG/ACT 2 spray(s) intranasally once a day; Duration: 90 days ZyrTEC Allergy 10 MG 1 tab(s) orally onc e a day NASAL WASHES N/A DIRECTED INTRANASALLY NEEDED; Duration: 30 *Please review for potential replacement for e-prescription and drug interaction check* PROAIR HFA 90 MCG/INH USE 2 TO 4 INHALAT IONS EVERY 4 TO 6 HOURS NEEDED AND PER THE ASTHMA ACTION PLAN EVERY 4 TO 6 HOURS NEEDED (INHALED WITH SPACER) *Please review for potential replacement for e-prescription and drug interaction check* Auvi-Q 0.3 MG/0.3ML 0.3 mg intramuscular ly once; Duration: 1 dose(s) 07/03/2017 NexIUM 40 MG 1 cap(s) orally once a day Estradiol 1 MG 1 tab(s) orally once a day Amitriptyline HCl 25 MG 1 tab(s) orally once a day (at bedtime) Progesterone 100 MG 2 cap(s) orally once a day (at bedtime) Nucala 100 MG 100 MG SUBCUTANEOUSL Y EVERY 4 WEEKS; Duration: 90 DAYS 07/14/2017 *Please review and pick correct strength-formulatio n from [facility] options. If intended option is not shown, discontinue and re-order from Quick Search* Simvastatin 20 MG 1 tab(s) orally once a day (at bedtime) Progress Notes * Rosalinda GUERRA LDOB:[birth year] (69 yo F)Acc No.[id number]:09/16/2023 Patient: Rosalinda MARTINEZ Provider: Harmony Saunders :1955 A ge:68 Y S ex:Female Date:09/16/2023 Address:[address] [place] [address] Pcp:Rob Hung MD Subjective: * Chief Complaints: * 1 . Multum To [facility] Conversion Encounter. * Medical History: * Medications: T aking PROAIR HFA CFC FREE 90 MCG/INH AEROSOL INHALE 2 PUFFS Q 6 H PRF WHEEZING , Notes to Pharmacist: *Please review for potential replacement for e-prescription and drug interaction check*, Taking predniSONE 20 MG Tablet 2 tab(s) orally once a dayx 2 weeks then keep remaining on hand for future use , Taking ZyrTEC Allergy 10 MG Tablet 1 tab(s) orally once a day , Taking ALPRAZolam 0.5 MG Tablet (Schedule IV Drug) TK 1 T PO TID PRN , Taking Singulair 10 MG Tablet 1 tab(s) orally once a day , Taking Spiriva Respimat 2.5 MCG/ACT Aerosol Solution 2 puff(s) inhaled once a day , Taking Flonase Allergy Relief 50 MCG/ACT Suspension 2 spray(s) intranasally once a day , Taking TESSALON PERLES 100 MG CAPSULE 1 CAP(S) ORALLY PRN , Notes to Pharmacist: *Please review for potential replacement for e-prescription and drug interaction check*, Taking Vitamin D3 50 MCG (2000 UT) Capsule 2 cap(s) orally once a day * Allergies: W ELLBUTRIN: rash. Objective: * Vitals: Assessment: * Assessment: 1. S evere persistent asthma, uncomplicated - J45.50 2 . A llergic rhinitis due to pollen - J30.1 3 . G nataliia-esophageal reflux disease without esophagitis - K21.9 Plan: * Treatment: 2. A llergic rhinitis due to pollen Continue Fluticasone Propionate Suspension, 50 MCG/ACT, 2 spray(s), intranasally, once a day, 90 days, 3, Refills 1; C ontinue NASAL WASHES 1 QUART OF STERILIZED TAP WATER OR DISTILLED WATER, 1 TSP NACL, 1 PINCH OF BAKING SODA, N/A, DIRECTED, INTRANASALLY, NEEDED, 30, QS, Refills PRN, Notes to Pharmacist: *Please review for potential replacement for e-prescription and drug interaction check*; C ontinue ZyrTEC Allergy Tablet, 10 MG, 1 tab(s), orally, once a day; S tart Auvi-Q Solution Auto-injector, 0.3 MG/0.3ML, 0.3 mg, intramuscularly, once, 1 dose(s), 1, Refills PRN; S tart SIT (TRADITIONAL) SEE RECORD, VARIABLE, PER SCHEDULE, SC, PER SCHEDULE, TO BE DETERMINED, Notes to Pharmacist: *Please review for potential replacement for e-prescription and drug interaction check*. 3. G nataliia-esophageal reflux disease without esophagitis Continue NexIUM Capsule Delayed Release, 40 MG, 1 cap(s), orally, once a day. 4. O thers Continue Simvastatin Tablet, 20 MG, 1 tab(s), orally, once a day (at bedtime); C ontinue Amitriptyline HCl Tablet, 25 MG, 1 tab(s), orally, once a day (at bedtime); C ontinue Estradiol Tablet, 1 MG, 1 tab(s), orally, once a day; C ontinue Progesterone Capsule, 100 MG, 2 cap(s), orally, once a day (at bedtime); S tart Nucala POWDER FOR INJECTION, 100 MG, 100 MG, SUBCUTANEOUSLY, EVERY 4 WEEKS, 90 DAYS, 3, Refills 12, Notes to Pharmacist: *Please review and pick correct strength-formulation from [employer] [facility] options. If intended option is not shown, discontinue and re-order from Quick Search*; R efill PROAIR HFA AEROSOL, 90 MCG/INH, USE 2 TO 4 INHALATIONS EVERY 4 TO 6 HOURS NEEDED AND PER THE ASTHMA ACTION PLAN EVERY 4 TO 6 HOURS NEEDED (INHALED WITH SPACER), 2 UNSPECIFIED, Refills 0, Notes to Pharmacist: *Please review for potential replacement for e-prescription and drug interaction check*. * Billing Information: * Visit Code: * Procedure Codes: * Electronic signature of Prov quentinr MariyaZ-Migration on 01/17/2025 at 12:24 PM CDT Sign off status: Pending * Provider: Harmony cardoza Migration Date: 0 09/16/2023 Generated for Mar scott/Wilma/Carlotaitting on: 1 12:24 PM CDT
--- OUTSIDE RECORDS SUMMARY | 2024-02-26 05:44 | XMS_ITS ---
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
--- OUTSIDE RECORDS SUMMARY | 2024-03-11 07:50 | XMS_ITS ---
Author Organization [facility] Address [address] [place] [address] Care Team Providers Care Sporting Goods Salesperson Name Role Phone Rob Hung Primary Care Provider Yash Escudero Unavailable [phone] ALLERGIES No Known Allergies RESULTS Component Value Reference Range Notes MRI : Lumbar without contras t Reviewed date:05/21/2024 10:11:47 AM Interpretation:[email or web address] no auth Performing Lab: Notes/Report: [email or web address] no auth X ray : Lumbar spine 5 views , AP, Lateral, Spot, Flexion and Extension Reviewed date:03/11/2024 01:54:27 PM Interpretation:[id number] Performing Lab: Notes/Report: 1245 REASON FOR REFERRAL Reason DIAGNOSES: SI enthes opathy, back pain, DDD, scoliosis, radiculopathy 3 times per week for 3 weeks eval and treat, exercise, modalities per therapist's discretion; HEP sacroiliac mobilization/stabilization Referral Organization [facility] Referring Provider First Name Yash Referring Provider Last Name Kamilla Referring Provider Speciality Orthopedic Surgery Referred Provider Specialty Physical The mark Referral Priority Routine Reason Eval and treat for P carol's Diagnosis 1 Lumbar stenosis with neurogenic claudication (M48.062) Referral Organization [facility] Referring Provider First Name Yash Referring Provider Last Name Kamilla Referring Provider Speciality Orthopedic Surgery Referred Provider Palak Mejia Referred Provider Specialty Neurology Referral Priority Routine REASON FOR VISIT Lumbar MEDICATIONS Medication SIG (Take, Route, Frequency, Duration) Notes Start Date End Date Status ALPRAZolam 0.25 MG 1 tablet Orally thre e times as needed for anxiety for 13 days 07/21/2022 Not-Taking Ondansetron 4 MG 1 tablet on the tong ue and allow to dissolve Orally every 6 hours as needed for pain for 15 days PRN 07/21/2022 Not-Taking traMADol HCl 50 MG 1 tablet as needed Orally every 4-6 hours for 7 days 07/20/2022 Not-Taking oxyCODONE-Acetaminophen 7.5-325 MG 1 tablet as needed Orally every 6 hrs for 7 days 07/18/2022 Not-Taking Meloxicam 15 MG 1 tablet once daily oral with food for 90 days 11/17/2022 Not-Taking Montelukast Sodium A ctive Delsym Not-Taking Tessalon Perles Not- Taking Tylenol otc/prn Not-Taking Breztri Aerosphere N ot-Taking Escitalopram Oxalate Active Temazepam Active Rosuvastatin Calcium Active Omeprazole Active Breyna Active Advil Active Albuterol Active Budesonide-Formoterol Fumarate Active PROBLEMS Problem Type ICD Code Onset Dates Problem Status W/U Status Risk SNOMED Code Notes Problem Bilateral primary osteoarthritis of hip (M16.0) Active confirmed Localized, primary osteoarthritis of the pelvic region and thigh ([id number]) VITAL SIGNS BMI 31.09 kg/m2 03/11/2024 Height 62 in 03/11/2024 Weight 170 lbs 03/11/2024 Encounters Encounter Location Date Provider Diagnosis [facility] [address] [place] [address] 03/11/2024 Yash Kohli Other low back pain M54.59 ; Myalgia, other site M79.18 ; Disc Degeneration, Lumbar Region with Leg Pain M51.361 ; Degenerative joint disease (DJD) of lumbar spine M47.816 ; Scoliosis M41.9 ; Lumbar radiculopathy M54.16 ; Pain in right hip M25.551 ; Pain in left hip M25.552 ; Bilateral primary osteoarthritis of hip M16.0 and Osteopenia of lumbar spine M85.88 ASSESSMENTS Encounter Date Diagnosis Assessment Notes Treatment Notes Treatment Clinical Notes Section Notes 03/11/2024 Other low back pain (ICD-10 - M54.59) <b>IMPRESSION:</b > Back pain. SI enthesopathy. Disc degeneration. Facet degenerative joint disease. Scoliosis. Lumbar radiculopathy. Suspected Parkinson's disease. Osteopenia based on x-rays. Hip degenerative joint disease. Hip pain. <b>PLAN:</b> It is my recommendation the patient undergo injections to the bilateral SI regions to try to moderate complaints. The patient agrees and received single injections of 1 mL of Kenalog, 3 to 4 mL Marcaine to the right and left SI regions injecting the quadratus lumborum and multifidus muscle and tendons. She tolerated the injections very well. She noted improvement in her complaints with the injections. She will apply ice to the injection sites p.r.n. and use Lidoderm patches to the region. She will undergo an MRI study through the lumbar spine to clarify the origin of her complaints. She will start in outpatient physical therapy to moderate complaints and improve function and balance. She will continue on her present medications. We will see her back in the office following completion of the MRI study. SENIOR CARE/cp 03/11/2024 Myalgia, other site (ICD-10 - M79.18) <b>IMPRESSION:</b > Back pain. SI enthesopathy. Disc degeneration. Facet degenerative joint disease. Scoliosis. Lumbar radiculopathy. Suspected Parkinson's disease. Osteopenia based on x-rays. Hip degenerative joint disease. Hip pain. <b>PLAN:</b> It is my recommendation the patient undergo injections to the bilateral SI regions to try to moderate complaints. The patient agrees and received single injections of 1 mL of Kenalog, 3 to 4 mL Marcaine to the right and left SI regions injecting the quadratus lumborum and multifidus muscle and tendons. She tolerated the injections very well. She noted improvement in her complaints with the injections. She will apply ice to the injection sites p.r.n. and use Lidoderm patches to the region. She will undergo an MRI study through the lumbar spine to clarify the origin of her complaints. She will start in outpatient physical therapy to moderate complaints and improve function and balance. She will continue on her present medications. We will see her back in the office following completion of the MRI study. SENIOR CARE/cp 03/11/2024 Disc Degeneration, Lumbar Region with Leg Pain (ICD-10 - M51.361) <b>IMPRESSION:</b > Back pain. SI enthesopathy. Disc degeneration. Facet degenerative joint disease. Scoliosis. Lumbar radiculopathy. Suspected Parkinson's disease. Osteopenia based on x-rays. Hip degenerative joint disease. Hip pain. <b>PLAN:</b> It is my recommendation the patient undergo injections to the bilateral SI regions to try to moderate complaints. The patient agrees and received single injections of 1 mL of Kenalog, 3 to 4 mL Marcaine to the right and left SI regions injecting the quadratus lumborum and multifidus muscle and tendons. She tolerated the injections very well. She noted improvement in her complaints with the injections. She will apply ice to the injection sites p.r.n. and use Lidoderm patches to the region. She will undergo an MRI study through the lumbar spine to clarify the origin of her complaints. She will start in outpatient physical therapy to moderate complaints and improve function and balance. She will continue on her present medications. We will see her back in the office following completion of the MRI study. 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 SI enthesopathy. Disc degeneration. Facet degenerative joint disease. Scoliosis. Lumbar radiculopathy. Suspected Parkinson's disease. Osteopenia based on x-rays. Hip degenerative joint disease. Hip pain. <b>PLAN:</b> It is my recommendation the patient undergo injections to the bilateral SI regions to try to moderate complaints. The patient agrees and received single injections of 1 mL of Kenalog, 3 to 4 mL Marcaine to the right and left SI regions injecting the quadratus lumborum and multifidus muscle and tendons. She tolerated the injections very well. She noted improvement in her complaints with the injections. She will apply ice to the injection sites p.r.n. and use Lidoderm patches to the region. She will undergo an MRI study through the lumbar spine to clarify the origin of her complaints. She will start in outpatient physical therapy to moderate complaints and improve function and balance. She will continue on her present medications. We will see her back in the office following completion of the MRI study. SENIOR CARE/ 03/11/2024 Scoliosis (ICD-10 - M41.9) <b>IMPRESSION:</b > Back pain. SI enthesopathy. Disc degeneration. Facet degenerative joint disease. Scoliosis. Lumbar radiculopathy. Suspected Parkinson's disease. Osteopenia based on x-rays. Hip degenerative joint disease. Hip pain. <b>PLAN:</b> It is my recommendation the patient undergo injections to the bilateral SI regions to try to moderate complaints. The patient agrees and received single injections of 1 mL of Kenalog, 3 to 4 mL Marcaine to the right and left SI regions injecting the quadratus lumborum and multifidus muscle and tendons. She tolerated the injections very well. She noted improvement in her complaints with the injections. She will apply ice to the injection sites p.r.n. and use Lidoderm patches to the region. She will undergo an MRI study through the lumbar spine to clarify the origin of her complaints. She will start in outpatient physical therapy to moderate complaints and improve function and balance. She will continue on her present medications. We will see her back in the office following completion of the MRI study. SENIOR CARE/ 03/11/2024 Lumbar radiculopathy (ICD-10 - M54.16) <b>IMPRESSION:</b > Back pain. SI enthesopathy. Disc degeneration. Facet degenerative joint disease. Scoliosis. Lumbar radiculopathy. Suspected Parkinson's disease. Osteopenia based on x-rays. Hip degenerative joint disease. Hip pain. <b>PLAN:</b> It is my recommendation the patient undergo injections to the bilateral SI regions to try to moderate complaints. The patient agrees and received single injections of 1 mL of Kenalog, 3 to 4 mL Marcaine to the right and left SI regions injecting the quadratus lumborum and multifidus muscle and tendons. She tolerated the injections very well. She noted improvement in her complaints with the injections. She will apply ice to the injection sites p.r.n. and use Lidoderm patches to the region. She will undergo an MRI study through the lumbar spine to clarify the origin of her complaints. She will start in outpatient physical therapy to moderate complaints and improve function and balance. She will continue on her present medications. We will see her back in the office following completion of the MRI study. SENIOR CARE/cp 03/11/2024 Pain in right hip (ICD-10 - M25.551) <b>IMPRESSION:</b > Back pain. SI enthesopathy. Disc degeneration. Facet degenerative joint disease. Scoliosis. Lumbar radiculopathy. Suspected Parkinson's disease. Osteopenia based on x-rays. Hip degenerative joint disease. Hip pain. <b>PLAN:</b> It is my recommendation the patient undergo injections to the bilateral SI regions to try to moderate complaints. The patient agrees and received single injections of 1 mL of Kenalog, 3 to 4 mL Marcaine to the right and left SI regions injecting the quadratus lumborum and multifidus muscle and tendons. She tolerated the injections very well. She noted improvement in her complaints with the injections. She will apply ice to the injection sites p.r.n. and use Lidoderm patches to the region. She will undergo an MRI study through the lumbar spine to clarify the origin of her complaints. She will start in outpatient physical therapy to moderate complaints and improve function and balance. She will continue on her present medications. We will see her back in the office following completion of the MRI study. SENIOR CARE/ 03/11/2024 Pain in left hip (ICD-10 - M25.552) <b>IMPRESSION:</b > Back pain. SI enthesopathy. Disc degeneration. Facet degenerative joint disease. Scoliosis. Lumbar radiculopathy. Suspected Parkinson's disease. Osteopenia based on x-rays. Hip degenerative joint disease. Hip pain. <b>PLAN:</b> It is my recommendation the patient undergo injections to the bilateral SI regions to try to moderate complaints. The patient agrees and received single injections of 1 mL of Kenalog, 3 to 4 mL Marcaine to the right and left SI regions injecting the quadratus lumborum and multifidus muscle and tendons. She tolerated the injections very well. She noted improvement in her complaints with the injections. She will apply ice to the injection sites p.r.n. and use Lidoderm patches to the region. She will undergo an MRI study through the lumbar spine to clarify the origin of her complaints. She will start in outpatient physical therapy to moderate complaints and improve function and balance. She will continue on her present medications. We will see her back in the office following completion of the MRI study. SENIOR CARE/ 03/11/2024 Bilateral primary osteoarthritis of hip (ICD-10 - M16.0) <b>IMPRESSION:</b > Back pain. SI enthesopathy. Disc degeneration. Facet degenerative joint disease. Scoliosis. Lumbar radiculopathy. Suspected Parkinson's disease. Osteopenia based on x-rays. Hip degenerative joint disease. Hip pain. <b>PLAN:</b> It is my recommendation the patient undergo injections to the bilateral SI regions to try to moderate complaints. The patient agrees and received single injections of 1 mL of Kenalog, 3 to 4 mL Marcaine to the right and left SI regions injecting the quadratus lumborum and multifidus muscle and tendons. She tolerated the injections very well. She noted improvement in her complaints with the injections. She will apply ice to the injection sites p.r.n. and use Lidoderm patches to the region. She will undergo an MRI study through the lumbar spine to clarify the origin of her complaints. She will start in outpatient physical therapy to moderate complaints and improve function and balance. She will continue on her present medications. We will see her back in the office following completion of the MRI study. SENIOR CARE/ 03/11/2024 Osteopenia of lumbar spine (ICD-10 - M85.88) <b>IMPRESSION:</b > Back pain. SI enthesopathy. Disc degeneration. Facet degenerative joint disease. Scoliosis. Lumbar radiculopathy. Suspected Parkinson's disease. Osteopenia based on x-rays. Hip degenerative joint disease. Hip pain. <b>PLAN:</b> It is my recommendation the patient undergo injections to the bilateral SI regions to try to moderate complaints. The patient agrees and received single injections of 1 mL of Kenalog, 3 to 4 mL Marcaine to the right and left SI regions injecting the quadratus lumborum and multifidus muscle and tendons. She tolerated the injections very well. She noted improvement in her complaints with the injections. She will apply ice to the injection sites p.r.n. and use Lidoderm patches to the region. She will undergo an MRI study through the lumbar spine to clarify the origin of her complaints. She will start in outpatient physical therapy to moderate complaints and improve function and balance. She will continue on her present medications. We will see her back in the office following completion of the MRI study. SENIOR CARE/cp PLAN OF TREATMENT Referrals Referral Date Details DIAGNOSES: SI enthes opathy, back pain, DDD, scoliosis, radiculopathy 3 times per week for 3 weeks eval and treat, exercise, modalities per therapist's discretion; HEP sacroiliac mobilization/stabilization Eval and treat for Harmony medina's, Palak Mejia Progress Notes * Examination Category Sub-Category Detail Notes Category Not es General Examination GENERAL: Patient is a n alert and cooperative female who moves about the room in a cautious fashion. Her facial features reveal lack of expression and a more blank expression. Her gait is wide-based and short stepped NECK: Exam reveals a well- healed anterior cervical incision, nontender to the touch. There is no tenderness to palpation. Cervical ROM is reduced by about 30% in all directions. Spurling's test is negative HEART: Regular rate and rhy thm LUNGS: Clear to auscultatio n in all albarado ABDOMEN: No tenderness to pal pation, bowel sounds present all four quadrants NEUROLOGIC: Upper extremity neur ologic examination reveals symmetric DTR's, intact sensation, 5+/5+ motor strength. There is a bilateral hand tremor. Dexter's sign negative. Lower extremity neurologic examination reveals symmetric DTR's, intact sensation, 5+/5+ motor strength. SLR testing negative. No clonus, negative Babinski's sign involving the lower extremities SKIN: No evidence of skin rashes or dermal lesions MUSCULOSKELETAL: Thoracic exam reveal s no tenderness to palpation. No spasm. Lumbar exam reveals tension involving the bilateral paraspinal musculature. ROM of the lumbar spine reveals forward flexion to 80 degrees, extension to 25 degrees, side-bending to 30 degrees. Lumbosacral examination reveals focal tenderness to palpation involving the bilateral SI regions, aggravated with reverse extension test, Gaenslen's signs positive PSYCHIATRIC: Mood and affect appe ar normal HEENT: No masses, PERRLA, E OM intact, no nasal drainage, no lymphadenopathy JOINTS: Hip ROM on the right is significantly reduced compared to the left. FABERE test is positive on the right. Left hip exam reveals mild reduced internal rotation HEMATOLOGIC: No evidence of exces sive bruising or bleeding Plain X-ray Imaging Studies LUMBAR SPINE X-RAYS: Five view x-rays through the lumbar spine reveal evidence of right hip joint degeneration, no AVN. Mildly diminished bone density throughout the lumbar spine and pelvis. There is scoliotic deformity to the right. Disc degeneration with disc space collapse at L3-4, L4-5 and L5-S1. Mild anterolisthesis of L5 on S1. Facet deterioration is most pronounced through the lower three levels, but is present from L2 to S1. No fracture History and Physical Notes * HPI (History of Present Illness) Category Sub-Category Detail Notes Category Not es Lower back Rosalinda Galo is a 68-year-old female who presents for evaluation today, 03/11/2024. She is a former patient of [facility] who was last seen on 03/01/2023. Historically, the patient had previously undergone treatment for back and neck complaints. She was diagnosed with degenerative disc disease, facet degenerative joint disease, lumbar radiculopathy. She had previously undergone bilateral lumbar facet injections L5-S1 on 11/17/2022 and 12/22/2022. Those injections did offer some improvement in her complaints. She is evaluated in the presence of her today. She presents today with a 10 year history of lower lumbar back pain radiating into the buttock region. The patient reports she was recently diagnosed with Parkinson's disease, but apparently she has undergone evaluation by more than one neurologist, one of which felt her symptoms were essentially associated with an intention tremor and not Parkinson's disease. She was previously on medication to treat her Parkinson's disease, but apparently developed elevation in her liver enzymes and had to stop the medication. She reports she has gone to the emergency room on three separate occasions in the last few months because of varying complaints associated with her back and her Parkinson's disease. She describes her symptoms as severe, aching, cramping pain. Symptoms are worsened with standing, walking, sitting, lying down resting, bending and tend to be improved sometimes with lying down. There has been no loss of bowel or bladder function. Her ability to walk long distances has been reduced Consultation Request Notes Referral Date Referring Provider Referred Provider Not es 03/11/2024 Yash Kohli , DIAGNOSES: S I enthesopathy, back pain, DDD, scoliosis, radiculopathy 3 times per week for 3 weeks eval and treat, exercise, modalities per therapist's discretion; HEP sacroiliac mobilization/stabilization 03/11/2024 Yash Kohli Ayman Eval and han cook for Parkinson's
--- OUTSIDE RECORDS SUMMARY | 2024-03-25 07:20 | XMS_ITS ---
Author Organization [facility], Address [address] [place] [address] Care Team Providers Care Sales Trader Name Role Phone Rob Hung Primary Care Provider Yash Escudero [phone] ALLERGIES No Known Allergies REASON FOR VISIT MRI results MEDICATIONS Medication SIG (Take, Route, Frequency, Duration) Notes Start Date End Date Status Albuterol Active Budesonide-Formoterol Fumarate Active Breyna Active Advil Active Escitalopram Oxalate Active Meloxicam 15 MG 1 tablet once daily oral with food for 90 days 11/17/2022 Not-Taking Ondansetron 4 MG 1 tablet on the tong ue and allow to dissolve Orally every 6 hours as needed for pain for 15 days PRN 07/21/2022 Not-Taking traMADol HCl 50 MG 1 tablet as needed Orally every 4-6 hours for 7 days 07/20/2022 Not-Taking oxyCODONE-Acetaminophen 7.5-325 MG 1 tablet as needed Orally every 6 hrs for 7 days 07/18/2022 Not-Taking ALPRAZolam 0.25 MG 1 tablet Orally thre e times as needed for anxiety for 13 days 07/21/2022 Not-Taking Breztri Aerosphere N ot-Taking Montelukast Sodium A ctive Delsym Not-Taking Tessalon Perles Not- Taking Tylenol otc/prn Not-Taking Temazepam Active Rosuvastatin Calcium Active Omeprazole Active PROBLEMS Problem Type ICD Code Onset Dates Problem Status W/U Status Risk SNOMED Code Notes Problem 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 (91168901) Problem Osteoarthritis of right hip (M16.11) Active confirmed Localized, primary osteoarthritis of the pelvic region and thigh (415541090) VITAL SIGNS BMI 31.09 kg/m2 03/25/2024 Height 62 in 03/25/2024 Weight 170 lbs 03/25/2024 PROCEDURES Procedure Date Ordered Date Performed Result Body Sit e Lumbar Facet Joint Injection 03/25/2024 04/09/2024 faxed t o excel Encounters Encounter Location Date Provider Diagnosis [facility] [address] [place] [address] 03/25/2024 Yash Kohli Degenerative joint disease (DJD) of lumbar spine M47.816 ; Other low back pain M54.59 ; Disc Degeneration, Lumbar Region with Leg Pain M51.361 ; Spinal stenosis of lumbar region with neurogenic claudication M48.062 ; Scoliosis M41.9 ; Hip pain, right M25.551 ; Osteoarthritis of right hip M16.11 and Osteopenia of spine M85.88 ASSESSMENTS Encounter Date Diagnosis Assessment Notes Treatment Notes Treatment Clinical Notes Section Notes 03/25/2024 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 She obtained lasting improvement in her back pain complaints with prior L5-S1 facet injections. She would like to repeat those injections at this time. She will undergo repeat L5-S1 facet injections, continue on her medications, continue with her home exercises and finish PT. She will follow-up in 6-8 weeks. [facility] [place] 03/25/2024 Other low back pain (ICD-10 - M54.59) <b>IMPRESSION:</b > Back pain Disc degeneration Facet DJD Spinal stenosis Scoliosis Hip pain Hip DJD Osteopenia H/O SI enthesopathy <b>PLAN:</b> It is my recommendation that the patient continue using Advil to moderate complaints, but also maximize usage of Tylenol up to 3,000 mg daily. She obtained lasting improvement in her back pain complaints with prior L5-S1 facet injections. She would like to repeat those injections at this time. She will undergo repeat L5-S1 facet injections, continue on her medications, continue with her home exercises and finish PT. She will follow-up in 6-8 weeks. [facility] [place] 03/25/2024 Disc Degeneration, Lumbar Region with Leg Pain (ICD-10 - M51.361) <b>IMPRESSION:</b > Back pain Disc degeneration Facet DJD Spinal stenosis Scoliosis Hip pain Hip DJD Osteopenia H/O SI enthesopathy <b>PLAN:</b> It is my recommendation that the patient continue using Advil to moderate complaints, but also maximize usage of Tylenol up to 3,000 mg daily. She obtained lasting improvement in her back pain complaints with prior L5-S1 facet injections. She would like to repeat those injections at this time. She will undergo repeat L5-S1 facet injections, continue on her medications, continue with her home exercises and finish PT. She will follow-up in 6-8 weeks. [facility] [place] 03/25/2024 Spinal stenosis of lumbar region with neurogenic claudication (ICD-10 - M48.062) <b>IMPRESSION:</b > Back pain Disc degeneration Facet DJD Spinal stenosis Scoliosis Hip pain Hip DJD Osteopenia H/O SI enthesopathy <b>PLAN:</b> It is my recommendation that the patient continue using Advil to moderate complaints, but also maximize usage of Tylenol up to 3,000 mg daily. She obtained lasting improvement in her back pain complaints with prior L5-S1 facet injections. She would like to repeat those injections at this time. She will undergo repeat L5-S1 facet injections, continue on her medications, continue with her home exercises and finish PT. She will follow-up in 6-8 weeks. [facility] [place] 03/25/2024 Scoliosis (ICD-10 - M41.9) <b>IMPRESSION:</b > Back pain Disc degeneration Facet DJD Spinal stenosis Scoliosis Hip pain Hip DJD Osteopenia H/O SI enthesopathy <b>PLAN:</b> It is my recommendation that the patient continue using Advil to moderate complaints, but also maximize usage of Tylenol up to 3,000 mg daily. She obtained lasting improvement in her back pain complaints with prior L5-S1 facet injections. She would like to repeat those injections at this time. She will undergo repeat L5-S1 facet injections, continue on her medications, continue with her home exercises and finish PT. She will follow-up in 6-8 weeks. [facility] [place] 03/25/2024 Hip pain, right (ICD-10 - M25.551) <b>IMPRESSION:</b > Back pain Disc degeneration Facet DJD Spinal stenosis Scoliosis Hip pain Hip DJD Osteopenia H/O SI enthesopathy <b>PLAN:</b> It is my recommendation that the patient continue using Advil to moderate complaints, but also maximize usage of Tylenol up to 3,000 mg daily. She obtained lasting improvement in her back pain complaints with prior L5-S1 facet injections. She would like to repeat those injections at this time. She will undergo repeat L5-S1 facet injections, continue on her medications, continue with her home exercises and finish PT. She will follow-up in 6-8 weeks. [facility] [place] 03/25/2024 Osteoarthritis of right hip (ICD-10 - M16.11) <b>IMPRESSION:</b > Back pain Disc degeneration Facet DJD Spinal stenosis Scoliosis Hip pain Hip DJD Osteopenia H/O SI enthesopathy <b>PLAN:</b> It is my recommendation that the patient continue using Advil to moderate complaints, but also maximize usage of Tylenol up to 3,000 mg daily. She obtained lasting improvement in her back pain complaints with prior L5-S1 facet injections. She would like to repeat those injections at this time. She will undergo repeat L5-S1 facet injections, continue on her medications, continue with her home exercises and finish PT. She will follow-up in 6-8 weeks. [facility] [place] 03/25/2024 Osteopenia of spine (ICD-10 - M85.88) <b>IMPRESSION:</b > Back pain Disc degeneration Facet DJD Spinal stenosis Scoliosis Hip pain Hip DJD Osteopenia H/O SI enthesopathy <b>PLAN:</b> It is my recommendation that the patient continue using Advil to moderate complaints, but also maximize usage of Tylenol up to 3,000 mg daily. She obtained lasting improvement in her back pain complaints with prior L5-S1 facet injections. She would like to repeat those injections at this time. She will undergo repeat L5-S1 facet injections, continue on her medications, continue with her home exercises and finish PT. She will follow-up in 6-8 weeks. [facility] [place] PLAN OF TREATMENT No Information Progress Notes * Examination Category Sub-Category Detail Notes Category Not es X-ray Interpretation Five vi ews L-spine reveal evidence of right hip joint degeneration, no AVN. Mildly diminished bone density throughout the L-spine and pelvis. Scoliotic deformity to the right. Disc degeneration with disc space collapse at L3-4, L4-5, L5-S1. Mild anterolisthesis of L5 on S1. Facet deterioration is most pronounced through the lower 3 levels, but is present from L2 to S1. No fracture. General Examination GENERAL: Patient is a n alert and cooperative female who moves about the room in a cautious fashion. Her facial features reveal lack of expression and a more blank expression. Her gait is wide-based and short-stepped NECK: Well-healed anterior cervical incision, non-tender to touch. No tenderness to palpation. Cervical ROM reduced by about 30% in all directions. Spurling's test negative HEART: Regular rate and rhy thm LUNGS: Clear to auscultatio n in all albarado ABDOMEN: No tenderness to pal pation, bowel sounds present all four quadrants NEUROLOGIC: UE neurologic exam r eveals symmetric DTR's, intact sensation, 5+/5+ motor strength. Bilateral hand tremor. Dexter's sign negative. LE neurologic exam reveals symmetric DTR's, intact sensation, 5+/5+ motor strength. SLR testing negative. No clonus, negative Babinski's sign involving LE's SKIN: No evidence of skin rashes or dermal lesions MUSCULOSKELETAL: Thoracic exam reveal s no tenderness to palpation, no spasm. Lumbar exam reveals tension involving bilateral paraspinal musculature. Lumbar ROM reveals FF 80 degrees, EXT 25 degrees, SB 30 degrees. Lumbosacral examination reveals focal tenderness to palpation involving bilateral SI regions aggravated with reversed extension test. Gaenslen's sign positive PSYCHIATRIC: Mood and affect appe ar normal HEENT: No masses, PERRLA, E OM intact, no nasal drainage, no lymphadenopathy JOINTS: Hip ROM significantl y reduced on R. compared to L. FABERE test positive on R HEMATOLOGIC: No evidence of exces sive bruising or bleeding MRI Imaging Studies MRI L-sp ine reveals evidence of mild canal narrowing at L3-4, thecal sac measurement 1.27 X 1.51. Disc degeneration and desiccation at all levels. Bulging discs at all levels. No significant neural compression at L2-3, L4-5, L5-S1. No fracture. Facet degeneration is present from L3 to S1, most pronounced at L5-S1. History and Physical Notes * HPI (History of Present Illness) Category Sub-Category Detail Notes Category Not es Lower back Rosalinda Galo roman resents for re-evaluation today, 03/25/2024. She was previously evaluated for c/o severe, aching, cramping back pain worsened with standing, walking, sitting, lying down, resting and tended to be improved with lying down at times. She denies any loss of bowel/bladder function. Her ability to walk long distances has reduced. She recently completed an MRI study of the L-spine, which is reviewed with her in the office today.
--- OUTSIDE RECORDS SUMMARY | 2024-04-09 09:15 | XMS_ITS | Continuity of Care Document ---
Author Organization [facility] Address [address] [place] [address] Phone Care Team Providers Care Online Content Editor Name Role Phone Jeff Escalante MD Unavailable Unavailable Procedures Procedure Date INJ PARAVERT F JNT L/S 1 LEV SURGICAL TRAY Triamcinolone Acetonide Injection, 10mg MRI, LUMBAR SPINE W/O CONTRAST INJ PARAVERT F JNT L/S 1 LEV SURGICAL TRAY Triamcinolone Acetonide Injection, 10mg INJ PARAVERT F JNT L/S 1 LEV Injection, Triamcinolone Acetonide, 10mg SURGICAL TRAY LOW OSMOLAR CONTRAST (200 TO 299 MG IODI NE) INJ PARAVERT F JNT L/S 1 LEV Injection, Triamcinolone Acetonide, 10mg SURGICAL TRAY Advance Directives Directive Yes / No Effective Date File Name No Information Encounters Encounter Description Practice Location Reason(s) For Visit Diagnoses Date Provider Providers Copied on Encounter [facility], [address], [place], [place], [id number], [place] tel:[phone] [facility] No Information Boris Aguilar. [address], [place], [place], [id number], [place]. tel:[phone] Referring Provider: Yash Kohli DO, [address] [place] [address] [address], [place], [address]. tel:[phone] [facility], [address] [place] [address], [id number], tel:[phone] [facility] No Information Jonatan Bazzi [address] [place], [place], [address] [place] [address], . tel:[phone] Referring Provider: Yash Kohli DO, [address] [place] [address] [address], [place], [place], [facility]. tel:[phone] [facility], [address] [facility], [place], [place], [id number], tel:[phone] [facility] No Information Nicolas Mari. [address] [place], [place], [id number], . tel:[phone] Referring Provider: Yash Kohli DO, [address] [place] [address] [address] [facility], [place], [place], [facility]. tel:[phone] [facility], [address] [facility], [place], [place], [id number], tel:[phone] [facility] No Information Jonatan Bazzi [address] [place] [address], [address] [place] [address], . tel:[phone] Referring Provider: Yash Kohli DO, [address] [place] [address] Suite [facility], [place], [place], [facility]. tel:[phone] [facility], [address] [place] [address], [id number], tel:[phone] [facility] No Information Sudhir Aguilar. [address] [place], [place], [id number], . tel:[phone] Referring Provider: Yash Kohli DO, [address] [place] [address] [address], [place], [place], [facility]. tel:[phone] Family History Family Member Type Diagnosis Age At Onset No Information Payers Payer name Insurance type Covered libertarian ID Sha pollock(s) MEDICARE RAILROAD MB [id number] [facility] ACC[facility] [id number] Social History Type Description Quantity Date Captured Comments Sex Female Smoking Status No Information Chief Complaint And Reason For Visit No Information Reason For Referral Reason For Referral No Information History Of Present Illness Encounter Date Complaint History Of Prese nt Illness No Information Functional Status Date Functional Assessmen t No Information Instructions Date Instruction Additional Infor mation No Information Assessments Type Assessment Date No Information Patient Care Teams Name Effective Dates (start - stop) Status Members No Information
--- OUTSIDE RECORDS SUMMARY | 2025-01-17 12:23 | XMS_ITS | Patient Health Record ---
Author Organization [facility] Address [address] [place] [address] Support Name Relationship Address Phone Rosalinda Galo Guarantor Unknown [phone] Reason For Referral No Information Medications Medication SIG (Take, Route, Frequency, Duration) Notes Start Date End Date Status Hyoscyamine Sulfate 0.125 MG *please review for potential update for e-prescription and drug interaction check* HYOSCYAMINE 0.125 MG SUBLINGUAL TABLET 01/25/2017 Active Plan Of Treatment No Information Insurance Providers Payer Name Payer Address Payer Phone Subscriber Number Group Number Insured Name Patient Relationship to Insured Coverage Start Date Coverage End Date [place] [address] [place], [place] [id number] Floyd Galo Spouse - patient is the spouse of the insured Medical (General) History Surgical History Surgery Date(Month/Year) Cholecystectomy Removal of tonsils (28753) Egd/endoscopy:reflux esophagitis 017 Colonoscopy:polyps, diverticulosis, hemo rrhoids 5 yr f/u 10/31/2016 Ercp duct stent placement (4 9802):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 Stents removed 02/17/2017. 02/15/2017
--- OUTSIDE RECORDS SUMMARY | 2025-01-17 12:23 | XMS_ITS | Encounter Summary ---
Author Organization [facility] Address [address] [place] [address] Phone Care Team Providers Care Supervisor Endless Track Vehicle Name Role Phone Rob Hung MD Primary Care Provider Encounter Details Date Type Department Care Team (Latest Contact Info) Description 06/13/2018 Orders Only [facility] Scanning, Provider Social History Tobacco Use Types Packs/Day Years Used Date Smoking Tobacco: Former Cigarettes Q uit: 1984 Smokeless Tobacco: Never Alcohol Use Standard Drinks/Week Comments No 0 (1 standard drink = 0.6 oz pur e alcohol) Comments No Sex and Gender Information Value Date Recorded Sex Assigned at Not on file Legal Sex Female 12:57 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 Gender Identity Female 12/29/2017 2:02 PM CDT Sexual Orientation Not on file documented as of this encounter Plan of Treatment Not on file documented as of this encounter Procedures Procedure Name Priority Date/Time Associated Diagnosis Comments SCAN - LABS 06/13/2018 documented in this encounter Results * SCAN - LABS (06/13/2018) us Provider Scanning Final Result documented in this encounter Visit Diagnoses Not on filedocumented in this encounter Care Teams Supervisor Endless Track Vehicle Relationship Specialty Start Date End Date Rob Hung MD PCP - General 04/02/17 documented as of this encounter
--- OUTSIDE RECORDS SUMMARY | 2025-01-17 12:23 | XMS_ITS | Data Portability ---
Author Organization [facility] [place] Address [address] [place] [address] [place] [address] Assessment Encounter Date Assessment Date Assessment LastModified by Organization Details LastModified Time 02/18/2020 02/18/2020 Annual gynecological exam performed. Patient will come back in a year unless there are new symptoms. [email or web address] Not available 02/18/2020 10:05:36 Plan of Treatment Reminders Order Date Submit Date Provider Last Modified By Organization Details Last Modified Time Details Appointments None recorded. Lab None recorded. Referral None recorded. Procedures None recorded. Surgeries None recorded. Imaging MAMMO, screening, bilateral 2019 [facility], [address], [place], [address], 05:01:05 DEXA, axial skeleton + vertebral fracture assessment 2019 [facility], [address], [place], [address], 05:01:05 Medication Orders None recorded. Patient TargetsNo targets recorded. Patient InstructionsNo instructions recorded. Reason for Referral None Reported. Results Created Date Observation Date Name Description Value Unit Range Abnormal Flag Note LastModifiedBy Organization Detail LastModifiedTime 10/08/1910/07/2020 MAMMO , scree flip, bilat eral No observ ation record ed. [email or web address] [facility] [address], [place], [address], 10/08/2020 11:23:45 10/08/19 21 10/07/2020 DEXA, axial skele ton + verte bral fract ure asses sment No observ ation record ed. [email or web address] [facility] [address], [place], [address], 10/22/2020 11:50:36 10/12/19 22 10/11/2021 MAMMO , scree flip, bilat eral No observ ation record ed. [email or web address] [facility] [address], [place], [address], 08/09/2022 10:42:26 Result Notes None recorded. Problems Name Problem SNOMED Code Status Onset Date Resolution Date Notes Provider Name and Address Organization Details Recorded Time Leukopeni a 80932151 Active 2010 LEUKOCYTOP ENIA NOS;Practi ce ID: 0001 Not Available [facility] 0 14:39:21 Pre-surge ry evaluatio n Active 2010 Pre-operat ariela examinatio n, unspecifie d;Practice ID: 0001 Not Available [facility] 0 14:39:21 Dysfuncti onal uterine bleeding Active 2010 DUB;Practi ce ID: 0001 Not Available [facility] 0 14:39:21 Adult health examinati on Active 2010 Routine Medical Exam;Recor ded Elsewhere: No Locatio n: [facility] rce: EHR Chroni c: N Practice ID: 0001 Billa ble Time: 10:45:00 AM Not Available [facility] 0 14:39:20 Urinary tract infectiou s disease 41561259 Active 2011 Urinary Tract Infection; Recorded Elsewhere: No Locatio n: [facility] rce: EHR Chroni c: N Practice ID: 0001 Billa ble Time: 03:00:00 PM Not Available [facility] 0 14:39:19 Increased frequency of urination 803423582 Active 2011 Urinary frequency; Recorded Elsewhere: No Locatio n: [facility] rce: EHR Chroni c: N Practice ID: 0001 Billa ble Time: 03:00:00 PM Not Available [facility] 0 14:39:19 Specializ ed medical examinati on Active 2012 Routine gynecologi oneyda examinatio n;Practice ID: 0001 Not Available [facility] 0 14:39:17 Screening for malignant neoplasm of cervix Active 2012 Pap Smear;Prac zara ID: 0001 Not Available [facility] 0 14:39:18 Screening for malignant neoplasm of rectum Active 2012 Screening for malignant neoplasms of the rectum;Pra ctice ID: 0001 Not Available [facility] 0 14:39:18 Microscop ic hematuria 582415842 Active 2013 HEMATURIA MICROSCOPI C;Practice ID: 0001 Not Available [facility] 0 14:39:18 Leukocyto sis 061972751 Active 2014 LEUKOCYTOS IS NOS;Practi ce ID: 0001 Not Available [facility] 0 14:39:[address] Concept Active 2015 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) w/o 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 findings;P ractice ID: 0001 Not Available [facility] 0 14:39:[address] Concept Active 2015 Encntr for general adult medical exam w/o abnormal findings;R ecorded Elsewhere: No Locatio n: [facility] rce: EHR Chroni c: N Practice ID: 0001 Billa ble Time: 01:00:00 PM Not Available [facility] 0 14:39:19 Postmenop ausal bleeding 29933716 Active 2016 Postmenopa usal bleeding;P ractice ID: 0001 Not Available [facility] 0 14:39:18 Menopause present 204195818 Active 2017 Symptoms such as flushing, sleeplessn ess, headache, lack of concentrat ion, associated with natural (age-relat ed) menopause; Recorded Elsewhere: No Locatio n: [facility] rce: EHR Chroni c: N Practice ID: 0001 Billa ble Time: 10:15:00 AM Not Available [facility] 0 14:39:19 Problem Notes None recorded. Procedures Surgical History Date Name Laterality Status Provider Name and Address Organization Details Recorded Time Cholecystectomy completed [facility] 02/18/2020 10:14:46 tonsillectomy and adenoidectomy completed [facility] 02/18/2020 10:14:54 Colonoscopy completed [facility] 02/18/2020 10:15:01 cataract surgery completed [facility] 02/18/2020 10:15:21 endoscopy completed [facility] 02/18/2020 10:15:40 cholangioscopy completed [facility] 02/18/2020 10:15:50 echocardiography completed [facility] 02/18/2020 10:16:04 Imaging Results None recorded. Procedure Notes None recorded. Medical Equipment None Reported. Allergies No known drug allergies Medications Name Sig Start Date Stop Date Status Note LastModified by Organization Details LastModified Time Prometriu m 200 mg capsule take 1 capsule (200MG) by oral route every day for 12 days in the evening sequenti ally per 28 day cycle 12/24 completed Prescrib ed Elsewher e: No Locat ion: [facility] odify By: smclizy Ponce r DateTime : 12/14/19 11 12:00:00 PM Not Available Not Available Not Available atorvasta tin 40 mg tablet TAKE 1 TABLET BY MOUTH ONCE DAILY active Not Available Not Available No t Available paroxetin e 10 mg tablet TAKE 1 TABLET DAILY (NEED APPOINTM ENT FOR ADDITION AL REFILLS) active Not Available Not Available No t Available Effexor XR 75 mg capsule,e xtended release take 1 capsule (75MG) by oral route every day with food 08/08 completed Prescrib ed Elsewher e: No Locat ion: [facility] odify By: aric Alanizou nter DateTime : 01/25/20 11 10:45:00 AM Not Available Not Available Not Available cetirizin e 10 mg tablet take 1 tablet by oral route every day 2018 active Prescrib ed Elsewher e: Yes Loca tion: [facility] odify By: shree morales DateTime : 10/09/19 19 03:00:00 PM Not Available Not Available Not Available nitroglyc julee 0.3 mg sublingua l tablet place 1 tablet by sublingu al route at the first sign of an attack; no more than 3 tabs are recommen ded within a 15 minute period. 2018 active Prescrib ed Elsewher e: Yes Loca tion: [facility] odify By: shree morales DateTime : 10/09/19 19 03:00:00 PM Not Available Not Available Not Available ondansetr on HCl 4 mg tablet take 1 tablet up to twice a day as needed for nausea active Not Available Not Available No t Available Prometriu m 100 mg capsule TAKE 1 CAPSULE DAILY IN THE EVENING 10/08 completed Prescrib ed Elsewher e: No Locat ion: [facility] odify By: noa morales DateTime : 10/09/19 19 03:00:00 PM Not Available Not Available Not Available metoprolo l succinate ER 100 mg tablet,ex tended release 24 hr take 1 tablet by oral route every day 2018 active Prescrib ed Elsewher e: Yes Loca tion: [facility] odify By: shree morales DateTime : 10/09/19 19 03:00:00 PM Not Available Not Available Not Available omeprazol e 40 mg capsule,d elayed release TAKE 1 CAPSULE BY MOUTH ONCE DAILY active Not Available Not Available No t Available Nexium 20 mg capsule,d elayed release take 1 capsule by oral route every day 10/08 completed Prescrib ed Elsewher e: Yes Loca tion: [facility] odify By: shree morales DateTime : 08/09/19 14 01:30:00 PM Not Available Not Available Not Available Metrogel Vaginal 0.75 % (37.5 mg/5 gram) insert 1 applicat orful (37.5MG) by vaginal route every day at bedtime 08/08 completed Prescrib ed Elsewher e: No Locat ion: [facility] odify By: johana ruiz DateTime : 04/23/19 13 03:03:23 PM Not Available Not Available Not Available estradiol 1 mg tablet take 1 tablet by oral route every day 02/08 completed Prescrib ed Elsewher e: No Locat ion: [facility] odify By: cate ruiz DateTime : 11/17/19 16 09:31:20 AM Not Available Not Available Not Available amitripty line 10 mg tablet take 1 tablet by oral route 3 times every day 06/23 completed Prescrib ed Elsewher e: Yes Loca tion: [facility] odify By: cate ruiz DateTime : 08/09/19 14 01:30:00 PM Not Available Not Available Not Available paroxetin e 20 mg tablet Take 1 tablet every day by oral route. active Not Available Not Available No t Available simvastat in 20 mg tablet take 1 tablet (20MG) by oral route every day in the evening 2010 active Prescrib ed Elsewher e: No Locat ion: [facility] odify By: daltony Ponce oh DateTime : 12/14/19 11 12:00:00 PM Not Available Not Available Not Available Advil 100 mg tablet take 2 tablet by oral route every 4 - 6 hours as needed with food 10/08 completed Prescrib ed Elsewher e: Yes Loca tion: [facility] odify By: amkuhl Kendra cruzunter DateTime : 08/19/19 15 01:00:00 PM Not Available Not Available Not Available Cipro 500 mg tablet take 1 tablet (500MG) by oral route every 12 hours 08/08 completed Prescrib ed Elsewher e: No Locat ion: [facility] odify By: johana ruiz DateTime : 02/08/20 11 10:40:40 AM Not Available Not Available Not Available nitroglyc julee 0.4 mg sublingua l tablet active Not Available Not Available Not Available aspirin 81 mg chewable tablet chew 1 tablet by oral route every day 2018 active Prescrib ed Elsewher e: Yes Loca tion: [facility] odify By: shree morales DateTime : 10/09/19 19 03:00:00 PM Not Available Not Available Not Available monteluka st 10 mg tablet TAKE 1 TABLET BY MOUTH ONCE DAILY active Not Available Not Available No t Available metoprolo l succinate ER 25 mg tablet,ex tended release 24 hr TAKE 1 TABLET BY MOUTH ONCE DAILY active Not Available Not Available No t Available Estrace 0.5 mg tablet take 1 tablet by oral route every day 10/08 completed Prescrib ed Elsewher e: No Locat ion: [facility] odify By: shree morales DateTime : 08/25/19 18 10:15:00 AM Not Available Not Available Not Available fluticaso ne propionat e 50 mcg/actua tion nasal spray,malka pension spray 1 spray by intranas al route every day in each nostril 2018 active Prescrib ed Elsewher e: Yes Loca tion: [facility] odify By: shree morales DateTime : 10/09/19 19 03:00:00 PM Not Available Not Available Not Available Ventolin HFA 90 mcg/actua tion aerosol inhaler INHALE 1 PUFF BY MOUTH EVERY 4 HOURS NEEDED FOR SHORTNES S OF BREATH AND FOR WHEEZING 02/17 completed Not Available Not Available Not Available Bactrim DS 800 mg-160 mg tablet take 1 tablet by oral route every 12 hours 08/18 completed Prescrib ed Elsewher e: No Locat ion: [facility] odify By: johana ruiz DateTime : 09/11/19 14 03:54:59 PM Not Available Not Available Not Available Vitamin D3 25 mcg (1,000 unit) tablet 2018 active Prescrib ed Elsewher e: Yes Loca tion: [facility] odify By: shree morales DateTime : 10/09/19 19 03:00:00 PM Not Available Not Available Not Available Sleep Aid (doxylami ne) 25 mg tablet 2018 active Prescrib ed Elsewher e: Yes Loca tion: [facility] odify By: shree cruzunter DateTime : 10/09/19 19 03:00:00 PM Not Available Not Available Not Available EEMT HS 0.625 mg-1.25 mg tablet take 1 tablet by oral route for 21 consecut ariela days, followed by 7 days off 08/24 completed Prescrib ed Elsewher e: No Locat ion: [facility] odify By: aric Smith nter DateTime : 09/14/19 16 01:00:00 PM Not Available Not Available Not Available aspirin active Not Available Not Avail able Not Available omeprazol e 20 mg tablet,de layed release 2018 active Prescrib ed Elsewher e: Yes Loca tion: [facility] odify By: shree cruzunter DateTime : 10/09/19 19 03:00:00 PM Not Available Not Available Not Available Body, Hair, Skin and Nails active Not Available Not Available Not Available Prevnar 13 (PF) 0.5 mL intramusc ular syringe ADM 0.5ML IM UTD 02/17 completed Not Available Not Available Not Available biotin 1 mg capsule 2018 active Prescrib ed Elsewher e: Yes Loca tion: [facility] odify By: shree morales DateTime : 10/09/19 19 03:00:00 PM Not Available Not Available Not Available Anoro Ellipta 62.5 mcg-25 mcg/actua tion powder for inhalatio n INHALE 1 PUFF BY MOUTH ONCE DAILY active Not Available Not Available No t Available ProAir RespiClic k active Not Available Not Available Not Available Baby Vitamin D3 active Not Available Not Available Not Available Probiotic 15 billion cell capsule 2018 active Prescrib ed Elsewher e: Yes Loca tion: [facility] odify By: shree cruzunter DateTime : 10/09/19 03:00:00 PM Not Available Not Available Not Available Shingrix (PF) 50 mcg/0.5 mL intramusc ular suspensio n, kit ADM 0.5ML IM UTD 02/17 completed Not Available Not Available Not Available Fluzone High-Dose Quad 2019- (PF) 240 mcg/0.7 mL IM syringe PHARMACY ADMINIST ERED 02/17 completed Not Available Not Available Not Available Vitals Date Recorded Systolic And Diastolic Provider Name and Address Organization Details Last Updated DateTime 02/18/2020 150/85 mm[Hg] Beatriz Estrada [facility] [address], [place], [address], [facility] 02/18/2020 10:37:12 Date Recorded Body height Body mass index (BMI) Body weight Systolic And Diastolic Provider Name and Address Organization Details Last Updated DateTime 02/18/2020 162.56 cm 28.5 kg/m2 04171.33 g 154/68 mm[Hg] Catherine Ayala [facility] 02/18/2020 10:12:46 Social History None recorded. Functional Status None recorded. Mental Status None recorded. Family History Nothing Reported Notes:Close relative: Diabet es mellitus Maternal grandfather: Hypertension Maternal grandmother: Diabetes mellitus Medical History No medical history recorded. Gynecological History Statement/Question Response Current Control Method None Obstetrics History GPAL:G 0 P 0 0 0 0 Past Encounters Encounter ID Performer Location Encounter Start Date Encounter Closed Date Diagnosis/Indication Diagnosis SNOMED-CT Code Diagnosis ICD10 Code Diagnosis IMO Codes Diagnosis Note [id number] Beatriz Estrada , [facility] [address] [address] 02/18/2020 09:50:19 02/18/2020 10:55:18 Gynecologic examination 85901035 Z01.419 Take Calcium with Vitamin D 12-1500mg daily. Do monthly self breast exams. It is advised to get annual flu shot in the fall and she could obtain at [facility] or [facility] clinic. If you haven't received the Tdap vaccine in the last 10 years you should obtain one as well. Have mammogram yearly, bone density every 2-3 years and colonoscop y every 5-10 years depending on findings and history. Engage in daily exercise of low impact aerobic exercise 45-60 minutes 4-5 times weekly. Avoid tobacco and illicit drugs as well as using moderation with alcohol intake less than 1-2 8 oz beverages daily. This lifestyle behavior pattern will lead to less health conditions and longer life span. If BMI greater than 25 weight watchers or dietary consult advised. Questions have been answered. Patient appears to understand instructio ns, but if you have any further questions call or respond to this email -Pap and HPV sent today -Dexa and mammogram order given, patient encouraged to schedule -Patient is having mild hot flashes, is currently on paroxetine but would like to discontinu e use, educated the patient about weaning off of it, encouraged patient to call the clinic if she is having issues or hot flashes get worse. She does not wish to take any other medication s for the hot flashes -RTC in 1 year or PRN Postmenopa usal osteopenia 680735030 M85.80 Screening mammography 24 342876 Z12.31 Health Concerns Section Related Observation LastModified by Organization Detai ls LastModified Time None Recorded Concern Status LastModified by Organization Details LastModified Time None Recorded Advance Directives Directive None Recorded Payers Insurance Date Sequence Insurance Name Policy Number Policy Cuevas Covered Member ID Cuevas Member ID Guarantor Name 02/19/2020 GRACE A - MEDICARE-[employer] (MEDICARE) Rosalinda Galo [id number] 06/19/2020 1 [place] (MEDICARE) Rosalinda Galo [id number] 2 Notes Date Note Type Note Provider Name and Address Organization Details Recorded Time 0 text/html Annual GYNReported by PatientHistoryFor history, patient reportsno gynecologic complaints.Genitourina ry symptomsFor urinary symptoms, patient reportsno hematuriaandno incontinence. For vulva, patient reportsno genital lesion. For vagina, patient reportsnormal vaginal discharge. For menstrual cycle, (pt is post menopausal).Breast symptomsFor breast, patient reportsno breast pain,no breast lump, andno nipple discharge.Endocrine symptomsFor menopausal symptoms, patient reportshot flashesbut reportsnormal vaginal lubrication(pt has been having mild hot flashes). For sexual complaints, patient reportsno sexual complaints,no pain during intercourse, andnormal libido.Psychological symptomsFor psychological symptoms, patient reportsno depression,no anxiety, andno pmdd.Preventative measuresFor preventive measures, patient reportsencourage self breast examination,encourage regular exercise,encourage no tobacco use, andencourage regular mammograms starting age 40. Beatriz Estrada, [facility] [address], [place], [address], [facility] 02/18/2020 10:51:02 OBGyn Episode No OBEpisode recorded.
--- OUTSIDE RECORDS SUMMARY | 2025-01-17 12:24 | XMS_ITS | Clinical Summary ---
Author Organization [facility] Address [address] [place] [address] Care Team Providers Care Chemical Operations And Training Name Role Phone Rob Hung MD Primary Care Provider [phone] Allergies Active Allergy Reactions Criticality Noted Date Comments Bupropion Rash Medium 08/22/2013 Medications PROAIR HFA 90 mcg/actuation inhaler 10/17/19 18 Active montelukast (SINGULAIR) 10 mg tablet 11/17/19 18 Active progesterone (PROMETRIUM) 100 mg capsule 12/27/19 18 Active ANORO ELLIPTA 62.5-25 mcg/actuation blister with device 12/22/19 18 Active multivitamin with minerals (HAIR,SKIN AND NAILS) tablet Take 1 tablet by mouth daily Active cholecalciferol (VITAMIN D-3) 2,000 unit tablet Ac tive Lactobacillus acidophilus 10 billion cell capsule Take by mouth. 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,Mixed hyperlipidemia Take 1 tablet (40 mg total) by mouth daily 90 tablet 3 05/26/19 21 Active Additional Information Patient not taking.Reported on 09/21/2022 aspirin 81 mg enteric coated tabletIndications: 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 Take 1 tablet (81 mg total) by mouth daily 30 tablet 11 05/26/19 21 Active metoprolol XL (TOPROL-XL) 25 mg extended release tabletIndications: 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 Take 1 tablet (25 mg total) by mouth daily 90 tablet 3 05/26/19 21 Active atorvastatin (LIPITOR) 40 mg tablet atorvastatin 40 mg tablet TAKE 1 TABLET BY MOUTH ONCE DAILY Active ALPRAZolam (XANAX) 0.5 mg tablet (Schedule IV Drug) TK 1 T PO TID PRN Active biotin 1 mg capsule biotin 1 mg capsule 10/09/19 19 Active doxylamine (UNISOM) 25 mg tablet Sleep Aid (doxylamine) 25 mg tablet 10/09/19 19 Active EPINEPHrine (Auvi-Q) 0.3 mg/0.3 mL auto-injection syringe 0.3 mg 07/04/19 18 Active fluticasone propion-salmeteroL (Advair HFA) 115-21 mcg/actuation inhaler every 12 hours Activ e meloxicam (MOBIC) 7.5 mg tablet Take 1 tablet (7.5 mg total) by mouth daily 06/23/19 23 Active mepolizumab (Nucala) 100 mg recon soln 1 mL (100 mg total) 07/15/19 18 Active ondansetron (ZOFRAN) 4 mg tablet ondansetron HCl 4 mg tablet Active PARoxetine (PAXIL) 20 mg tablet paroxetine 20 mg tablet Active PARoxetine (PAXIL) 10 mg tablet paroxetine 10 mg tablet Active predniSONE (DELTASONE) 20 mg tablet 2 tab(s) Active inhalational spacing device (Aerochamber Plus Flow-Vu) spacer as directed Ac tive fluticasone propionate (Flonase Allergy Relief) 50 mcg/actuation nasal spray daily Active fluticasone propionate (FLOVENT DISKUS) 50 mcg/actuation diskus inhaler daily Activ e sodium chloride-sodium bicarbonate (Nasal Wash) packet with rinse device as directed Activ e L. acidophilus-L. rhamnosus (Probiotic) 15 billion cell capsule Probiotic 15 billion cell capsule 10/09/19 19 Active cetirizine (ZyrTEC) 10 mg capsule daily Active benzonatate (Tessalon Perles) 100 mg capsule 1 cap(s) Activ e tiotropium bromide (Spiriva Respimat) 2.5 mcg/actuation inhaler daily Active Ultram 50 mg tablet Take 1 tablet (50 mg total) by mouth every 6 (six) hours as needed 07/21/19 23 Active Active Problems Problem Noted Date Diagnosed Date Acute severe exacerbation of severe persistent a sthma 09/15/2022 09/15/2022 Allergic rhinitis 09/15/2022 09/15/2022 Allergic rhinitis due to animal hair and dander 09/15/2022 09/15/2022 Allergic rhinitis due to pollen 09/15/2022 09/15/2022 Candidiasis of mouth 09/15/2022 09/15/2022 Chronic allergic conjunctivitis 09/15/2022 09/15/2022 Chronic obstructive pulmonary disease 09/15/2022 09/15/2022 Impacted cerumen 09/15/2022 09/15/2022 Epigastric pain 09/15/2022 09/15/2022 Elevated blood pressure read ing without diagnosis of hypertension 09/15/2022 09/15/2022 Cough 09/15/2022 09/15/2022 Chronic sinusitis 09/15/2022 09/15/2022 Vitamin D deficiency 09/15/2022 09/15/2022 Gastro-esophageal reflux disease without esophag itis 09/15/2022 09/15/2022 Uncomplicated severe persistent asthma 09/15/2022 Headache 05/31/2020 Coronary artery disease invo lving oneida coronary artery of oneida heart without angina pectoris 05/14/2019 Mixed hyperlipidemia 08/08/2018 Precordial pain 08/08/2018 Gastroesophageal reflux disease without esophagi tis 08/08/2018 History of pancreatitis 08/08/2018 Severe persistent asthma without complication Recurrent acute pancreatitis 12/29/2017 Pancreatitis, unspecified pancreatitis type 12/03 Overview (12/29/2017): Added automatically from request for surgery [id number] Postmenopausal bleeding 06/23/2016 09/16/[address] of the abdomen 09/14/201509/15 Leukocytosis 08/18/2014 09/15/2022 Abnormal findings on diagnostic imaging of breas t 08/13/2013 09/15/2022 Microscopic hematuria 08/08/2013 09/15/2022 Screening for malignant neoplasm of cervix 04/1609/15/2022 Screening for malignant neoplasm of the rectum 0 04/16/2012 09/15/2022 Increased frequency of urination 06/06/2011 09/15/2022 Urinary tract infectious disease 06/06/2011 09/15/2022 Dysfunctional uterine bleeding 01/10/2011 0 09/15/2022 Pulmonary nodule Immunizations Immunization Administration Dates Next Due Influenza, Trivalent, IM (MDV) 01/16/2017,2015 Influenza, Trivalent, Preservative Free, Intramu scular 04/16/2012 Pneumococcal Conjugate PCV 13 04/08/2019 Pneumococcal Polysaccharide PPV23 01/16/2017 ZOSTER Recombinant 06/07/2019,04/08/2019 Surgical History Surgery Date Site/Laterality Comments CATARACT EXTRACTION W/ INTRA OCULAR LENS IMPLANT CHOLECYSTECTOMY 04/03/1996 - 04/02/1997 ERCP BREAST BIOPSY Bilateral fibromas COLONOSCOPY TONSILLECTOMY AND ADENOIDECTOMY 04/03/2000 - 04/02/2001 Uvulectomy Medical History Medical History Date Comments Asthma GERD (gastroesophageal reflux disease) DDD (degenerative disc disease), cervical Pancreatitis 11/17/2017 COPD (chronic obstructive pulmonary disease) Family History Medical History Relation Name Comments Diabetes Brother 1 Car accident Brother 2 Doesnot know father Father Lung cancer Sister Relation Name Status Comments Brother 1 Alive Brother 2 Father Other Mother Alive Sister Alive Social History Tobacco Use Types Packs/Day Years Used Date Smoking Tobacco: Former Cigarettes 0.3 8 1 976 - 1984 Smokeless Tobacco: Never Tobacco Cessation:Counseling Given: No Alcohol Use Standard Drinks/Week Comments No 0 (1 standard drink = 0.6 oz pur e alcohol) AUDIT-C Answer Date Recorded Q1: How often do you have a drink containing alc ohol? Never 09/21/2022 Average Number of Drinks Not on file 023 Q3: How often do you have si x or more drinks on one occasion? Never 09/21/2022 Personal Safety Answer Date Recorded Getting School Help Needed Not on file 05/31 Comments No Sex and Gender Information Value Date Recorded Sex Assigned at Not on file Legal Sex Female 12:57 PM DIRECTOR MBA Gender Identity Female 12/29/2017 2:02 PM CDT Sexual Orientation Not on file Occupation Industry Job Start Date Job End Date Retired Not on file Not on file Not on file Obstetrics History Last Filed Vital Signs Vital Sign Reading Time Taken Comments Blood Pressure 131/74 09/21/2022 10:23 AM CDT Pulse 87 09/21/2022 10:23 AM CDT Temperature 36.7 C (98.1 F) 06/25/2018 12:27 PM CDT Respiratory Rate 16 08/08/2018 9:38 AM CDT Oxygen Saturation 96% 05/26/2020 11:48 AM DIRECTOR MBA Inhaled Oxygen Concentration - - Weight 73 kg (161 lb) 09/21/2022 10:23 AM CDT Height 160 cm (5' 3) 09/21/2022 10:23 AM CDT Body Mass Index 28.52 09/21/2022 10:23 AM CDT Plan of Treatment Health Maintenance Due Date Last Done Comments Colon Cancer Screening-Colonoscopy 1954 Depression Screening 1954 Fall Risk Assessment 1955 Hepatitis C Screening 1955 Osteoporosis Screening-Bone Density Scan 1954 DTaP/Tdap/Td Vaccine (1 - Tdap) 1965 Hepatitis B Screening 1972 Breast Cancer Screening-Mammogram 02/02/2019 02/02/2018, 11/07/2016, 09/17/2015, Additional history exists Well Visit 65+ 2019 Pneumococcal vaccine 65+ (3 of 3 - PCV20 or PCV21) 04/08/2024 04/08/2019, 01/16/2017 Influenza Vaccine (#1) 2024 7, 01/04/2016, 04/16/2012 Zoster Vaccine Completed 06/07/2019, 04/08/2019 Procedures Procedure Name Priority Date/Time Associated Diagnosis Comments SCREENING MAMMOGRAM 2D BILATERAL Schedule Routine, Read Routine (OP Routine) 02/02/2018 2:04 PM CDT Encounter for screening mammogram for malignant neoplasm of breast from Last 3 Months or Most Recently Relevant to Health Maintenance Results * Screening Mammogram 2D Bilateral (02/02/2018 2:04 PM CDT) Anatomical Region Laterality Modality Breast Bilateral Mammography Narrative 02/07/2018 8:12 AM DIRECTOR MBA Mammogram Technique: Bilateral Full-Field Digital Screening Mammogram was performed. Views obtained: bilateral craniocaudal and bilateral mediolateral oblique. Computer Aided Detection was performed. Mammogram Findings: The present examination has been compared to prior imaging studies performed at [facility] on 08/28/2014, 09/17/2015 and 11/07/2016. The breasts are heterogeneously dense, which may obscure small masses. There is no suspicious abnormality in either breast. Impression: Annual screening mammography is recommended. OVERALL FINAL ASSESSMENT: BI-RADS CATEGORY 1: Negative. Procedure Note Mariella Ascencio MD - 02/07/2018 Mammogram Technique: Bilateral Full-Field Digital Screening Mammogram was performed. Views obtained: bilateral craniocaudal and bilateral mediolateral oblique. Computer Aided Detection was performed. Mammogram Findings: The present examination has been compared to prior imaging studies performed at [facility] on 08/28/2014, 09/17/2015 and 11/07/2016. The breasts are heterogeneously dense, which may obscure small masses. There is no suspicious abnormality in either breast. Impression: Annual screening mammography is recommended. OVERALL FINAL ASSESSMENT: BI-RADS CATEGORY 1: Negative. Jessica TREVINO IMG MAMMO PROCEDURES Final Result from Last 3 Months or Most Recently Relevant to Health Maintenance Insurance MEDICARE [employer] [place] [employer] [place] PEND[place] S[place] TO [facility] Advance Directives For more information, please contact: [phone] * Full Code (Latest Code Status on File) Date Activated Date Inactivated Comments 01/26/2018 9:40 AM 01/26/2018 1:25 PM Care Teams Chemical Operations And Training Relationship Specialty Start Date End Date Rob Hung MD PCP - General 04/02/17
--- OUTSIDE RECORDS SUMMARY | 2025-01-17 12:24 | XMS_ITS | Encounter Summary ---
Author Organization [facility] Address [address] [place] [address] Phone Care Team Providers Care Behavioral Geneticist Name Role Phone Rob Hung MD Primary Care Provider [phone] Encounter Details Date Type Department Care Team (Latest Contact Info) Description 11/17/2017 Orders Only [facility] Scanning, Provider Social History Tobacco Use Types Packs/Day Years Used Date Smoking Tobacco: Former Comments Unknown Sex and Gender Information Value Date Recorded Sex Assigned at Not on file Legal Sex Female 12:57 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 Gender Identity Female 12/29/2017 2:02 PM CDT Sexual Orientation Not on file documented as of this encounter Plan of Treatment Not on file documented as of this encounter Procedures Procedure Name Priority Date/Time Associated Diagnosis Comments SCAN - RADIOLOGY/IMAGING 11/17/2017 documented in this encounter Results * SCAN - RADIOLOGY/IMAGING (11/17/2017) Anatomical Region Laterality Modality Other us Provider Scanning Final Result documented in this encounter Visit Diagnoses Not on filedocumented in this encounter Care Teams Behavioral Geneticist Relationship Specialty Start Date End Date Rob Hung MD PCP - General 04/02/17 documented as of this encounter
--- OUTSIDE RECORDS SUMMARY | 2025-01-17 12:24 | XMS_ITS | Encounter Summary ---
Author Organization [facility] Address [address] [place] [address] Phone Care Team Providers Care Maintenance Shop Clerk Name Role Phone Rob Hung MD Primary Care Provider [phone] Rob Hung MD Primary Care Provider [phone] Orville Brewster MD Primary Care Provider + [phone] Rob Hung MD Primary Care Provider [phone] Encounter Details Date Type Department Care Team (Latest Contact Info) Description 06/15/2015 Orders Only [facility] Scanning, Provider Social History Tobacco Use Types Packs/Day Years Used Date Smoking Tobacco: Former Comments Unknown Sex and Gender Information Value Date Recorded Sex Assigned at Not on file Legal Sex Female 12:57 PM SIGHT EFFECTS SPECIALIST Gender Identity Female 12/29/2017 2:02 PM CDT Sexual Orientation Not on file documented as of this encounter Plan of Treatment Not on file documented as of this encounter Procedures Procedure Name Priority Date/Time Associated Diagnosis Comments SCAN - RADIOLOGY/IMAGING 06/15/2015 documented in this encounter Results * SCAN - RADIOLOGY/IMAGING (06/15/2015) Anatomical Region Laterality Modality Other us Provider Scanning Final Result documented in this encounter Visit Diagnoses Not on filedocumented in this encounter Care Teams Maintenance Shop Clerk Relationship Specialty Start Date End Date Rob Hung MD PCP - General 04/02/17 Rob Hung MD PCP - General 11/07/16 11/15/16 Orville Brewster MD [address] [place] [id number] PCP - General 11/16/16 02/01/17 Rob Hung MD PCP - General 02/02/17 04/01/17 documented as of this encounter
--- OUTSIDE RECORDS SUMMARY | 2025-01-17 12:24 | XMS_ITS | Patient Health Record ---
Author Organization [facility] [employer] [place] ([address]) Address [address] [place] [address] Care Team Providers Care Patient Accounts Coordinator Name Role Phone Anabell LION, Rob Primary Care Provider Unavaila nancy WhitfieldUlises Unavailable [phone] Jake Tavera Unavailable Unavailable Allergies Allergen (clinical drug ingredient) Drug/Non Drug Allergy documented on EMR Reaction Allergy Type Onset Date Status WELLBUTRIN (uncoded) rash Allergy Active Reason For Referral No Information Medications Medication SIG (Take, Route, Frequency, Duration) Notes Start Date End Date Status Estradiol 1 MG 1 tab(s) orally once a day Active ProAir RespiClick 90 MCG 2 PUFFS Q 4-6 HOURS PER ASTHMA ACTION PLAN INHALED Q4-6 HOURS, PRN AND PER THE ASTHMA ACTION PLAN; Duration: 30 DAYS *Please review and pick correct strength-formulat ion from [employer] options. If intended option is not shown, discontinue and re-order from Quick Search* Active Amitriptyline HCl 25 MG 1 tab(s) orally once a day (at bedtime) Active Spiriva Respimat 2.5 MCG/ACT 2 puff(s) inhaled once a day; Duration: 90 days Active NexIUM 40 MG 1 cap(s) orally once a day Active SIT (TRADITIONAL) VARIABLE PER SCHEDULE SC PER SCHEDULE; Duration: TO BE DETERMINED *Please review for potential replacement for e-prescription and drug interaction check* 07/03/2017 Active Progesterone 100 MG 2 cap(s) orally once a day (at bedtime) Active Advair HFA 115-21 MCG/ACT 2 puff(s) inhaled 2 times a day; Duration: 30 day(s) Active predniSONE 20 MG 2 tab(s) orally once a dayx 2 weeks then keep remaining on hand for future use; Duration: 14 days Active PROAIR HFA CFC FREE 90 MCG/INH INHALE 2 PUFFS Q 6 H PRF WHEEZING; Duration: 25 *Please review for potential replacement for e-prescription and drug interaction check* Active NUCALA 100 mg 100 mg subcutaneousl y every 4 weeks; Duration: 90 days 07/14/2017 Active Nucala 100 MG 100 MG SUBCUTANEOUSL Y EVERY 4 WEEKS; Duration: 90 DAYS *Please review and pick correct strength-formulat ion from [place] options. If intended option is not shown, discontinue and re-order from Quick Search* 07/14/2017 Active SINGULAIR 10 mg 1 tab(s) orally once a day Active ALPRAZOLAM 0.5 mg (Schedule IV Drug) T K 1 T PO TID PRN; Duration: 20 Active FLONASE 50 mcg/inh 2 spray(s) intranasally once a day Active SPIRIVA RESPIMAT 2.5 mcg/inh 2 puff(s) inhaled once a day Active AUVI-Q 0.3 mg 0.3 mg intramuscularly once; Duration: 1 dose(s) 07/03/2017 Active ZYRTEC 10 mg 1 tab(s) orally once a day Active NEXIUM 40 mg 1 cap(s) orally once a day Active Fluticasone Propionate 50 MCG/ACT 2 spray(s) [...] for e-prescription and drug interaction check* Active Simvastatin 20 MG 1 tab(s) orally once a day (at bedtime) Active AEROCHAMBER PLUS DIRECTED *Please review for potential replacement for e-prescription and drug interaction check* Active VITAMIN D3 2000 intl units 2 cap(s) orally once a day Active FLUTICASONE PROPIONATE 50 mcg/inh 2 spray(s) intranasally once a day; Duration: 90 days Active Auvi-Q 0.3 MG/0.3ML 0.3 mg intramuscularly once; Duration: 1 dose(s) 07/03/2017 Active ESTRADIOL 1 mg 1 tab(s) orally once a day Active Vitamin D3 50 MCG (2000 UT) 2 cap(s) orally once a day Active AMITRIPTYLINE 25 mg 1 tab(s) orally once a day (at bedtime) Active TESSALON PERLES 100 MG 1 CAP(S) ORALLY PRN *Please review for potential replacement for e-prescription and drug interaction check* Active PROGESTERONE 100 mg 2 cap(s) orally once a day (at bedtime) Active SIMVASTATIN 20 mg 1 tab(s) orally once a day (at bedtime) Active PREDNISONE 20 mg 2 tab(s) orally once a dayx 2 weeks then keep remaining on hand for future use; Duration: 14 days Active ADVAIR HFA CFC free 115 mcg-21 mcg/inh 2 puff(s) inhaled 2 times a day; Duration: 30 day(s) Active ZyrTEC Allergy 10 MG 1 tab(s) orally onc e a day Active ZYRTEC 10 mg 1 tab(s) orally once a day Active Singulair 10 MG 1 tab(s) orally once a day Active ALPRAZolam 0.5 MG (Schedule IV Drug) T K 1 T PO TID PRN; Duration: 20 Active PROAIR RESPICLICK 90 mcg 2 puffs q 4-6 hours per asthma action plan Inhaled Q4-6 hours, PRN and per the asthma action plan; Duration: 30 days Active Flonase Allergy Relief 50 MCG/ACT 2 spray(s) intranasally once a day Active SPIRIVA RESPIMAT 2.5 mcg/inh 2 puff(s) inhaled once a day; Duration: 90 days Active Spiriva Respimat 2.5 MCG/ACT 2 puff(s) inhaled once a day Active Immunizations Vaccine Route Administration Date Status Comme nts Fluzone Quadrivalent Unknown 01/16/2017 Administered Influenza Unknown 01/04/2016 Administered Pneumovax 23 Unknown 01/16/2017 Administered Social History Tobacco Use: Social History Observation Description Date Details (start date - stop date) Former Smoker NA - NA Smoking Smart Form: Question Answer Notes Are you a: former smoker How long it has been since you last smoked? > 10 years Problems Problem Type SNOMED Code ICD Code Onset Dates Problem Status W/U Status Risk Notes Problem Vitamin D deficiency (72848867) Vitamin D deficiency, unspecified (E55.9) Active confirmed Problem Chronic allergic conjunctivitis (20537497) Other chronic allergic conjunctivitis (H10.45) Active confirmed Problem Impacted cerumen (65993339) Impacted cerumen, bilateral (H61.23) Active confirmed Problem Allergic rhinitis caused by pollen (disorder) (63872570) Allergic rhinitis due to pollen (J30.1) Active confirmed Problem Allergic rhinitis caused by animal hair and dander (813962831121159) Allergic rhinitis due to animal (cat) (dog) hair and dander (J30.81) Active confirmed Problem Allergic rhinitis (00068216) Other allergic rhinitis (J30.89) Active confirmed Problem Chronic sinusitis (43829049) Chronic sinusitis, unspecified (J32.9) Active confirmed Problem Chronic obstructive pulmonary disease (28267934) Chronic obstructive pulmonary disease, unspecified (J44.9) Active confirmed Problem Elevated blood pressure reading without diagnosis of hypertension (629425164) Elevated blood-pressure reading, without diagnosis of hypertension (R03.0) Active confirmed Problem Cough (60296087) Cough (R05) Active confirmed Problem Epigastric pain (79996501) Epigastric pain (R10.13) Active confirmed Problem Uncomplicated severe persistent asthma (310629776) Severe persistent asthma, uncomplicated (J45.50) Active confirmed Problem Acute severe exacerbation of severe persistent asthma (405889788) Severe persistent asthma with (acute) exacerbation (J45.51) Active confirmed Problem Candidiasis of mouth (36189434) Candidal stomatitis (B37.0) Active confirmed Problem Gastro-esophageal reflux disease without esophagitis (326746855) Gastro-esophageal reflux disease without esophagitis (K21.9) Active confirmed Plan Of Treatment No Information Insurance Providers Payer Name Payer Address Payer Phone Subscriber Number Group Number Insured Name Patient Relationship to Insured Coverage Start Date Coverage End Date [facility] [address] [address] [place] [address] [phone] [id number] Floyd Galo Spouse - patient is the spouse of the insured Medical (General) History Medical History History ICD Code Cough Chronic sinusitis, unspecified Severe persistent asthma, uncomplicated Chronic obstructive pulmonary disease, u nspecified Allergic rhinitis due to pollen J30.1 Allergic rhinitis due to animal (cat) (d og) hair and dander J30.81 Other allergic rhinitis J30.89 Other chronic allergic conjunctivitis H1 0.45 Vitamin D deficiency, unspecified E55.9 Candidal stomatitis B37.0 Elevated blood-pressure reading, without diagnosis of hypertension Diverticulitis Pure hypercholesterolemia, unspecified Gastro-esophageal reflux disease without esophagitis Impacted cerumen, bilateral Surgical History Surgery Date(Month/Year) Tonsils 05/05/2000 Gallbladder 11/18/1996
--- OUTSIDE RECORDS SUMMARY | 2025-01-17 12:24 | XMS_ITS | Clinical Summary ---
Author Organization [facility] Address [address] [place] [address] Care Team Providers Care Animal Science Professor Name Role Phone Unavailable Primary Care Provider Unavailabl e Social History Tobacco Use Types Packs/Day Years Used Date Smoking Tobacco: Never Assessed Comments Unknown Sex and Gender Information Value Date Recorded Sex Assigned at Not on file Legal Sex Female 8:45 PM CDT Gender Identity Not on file Sexual Orientation Not on file Plan of Treatment Health Maintenance Due Date Last Done Comments Colorectal Cancer Screening Colonoscopy (10 Years) 1954 Hepatitis C 1972 DTaP, Tdap and Td Vaccines ( 1 - Tdap) 1973 Mammogram Screening 1994 Pneumococcal Vaccine: 50+ Ye ars (1 of 1 - PCV) 2004 Zoster Vaccines (1 of 2) 2004 Dexa Scan (General) 2019 COVID-19 Vaccine ( - 2023-2 5 season) 2024 Influenza Adult (#1) 2025 RSV Immunization or 60+ Years (1 - 1-dose 75+ series) 2029 Meningococcal B Vaccine Aged Out No l onger eligible based on patient's age to complete this topic Meningococcal Vaccine Aged Out No tom christian eligible based on patient's age to complete this topic RSV Immunizations Under 20 Months Aged Out No longer eligible based on patient's age to complete this topic
--- OUTSIDE RECORDS SUMMARY | 2025-01-17 12:24 | XMS_ITS | Patient Health Record ---
Author Organization [facility] , Address [address] [facility] [address] [place] [address] Care Team Providers Care Over The Horizon Targeting Supervisor Name Role Phone Anabell Rob Primary Care Provider Yash Escudero Unavailable [phone] ALLERGIES No Known Allergies RESULTS Component Value Reference Range Notes MRI : Lumbar without contras t Reviewed date:05/21/2024 10:11:47 AM Interpretation:medicare/[email or web address] no auth Performing Lab: Notes/Report: medicare/bcbs no [...] Orthopedic Surgery Referred Provider Specialty Physical [facility] Referral Priority Routine Reason Eval and treat for P arkinson's Diagnosis 1 Lumbar stenosis with neurogenic claudication (M48.062) Referral Organization [facility] Referring Provider First Name Yash Referring Provider Last Name Kamilla Referring Provider Speciality Orthopedic Surgery Referred Provider Palak Mejia Referred Provider Specialty Neurology Referral Priority Routine MEDICATIONS Medication SIG (Take, Route, Frequency, Duration) Notes Start Date End Date Status Escitalopram Oxalate Active Ondansetron 4 MG 1 tablet on the tong ue and allow to dissolve Orally every 6 hours as needed for pain for 15 days PRN 07/21/2022 Not-Taking Temazepam Active traMADol HCl 50 MG 1 tablet as needed Orally every 4-6 hours for 7 days 07/20/2022 Not-Taking Rosuvastatin Calcium Active oxyCODONE-Acetaminophen 7.5-325 MG 1 tablet as needed Orally every 6 hrs for 7 days 07/18/2022 Not-Taking Omeprazole Active ALPRAZolam 0.25 MG 1 tablet Orally thre e times as needed for anxiety for 13 days 07/21/2022 Not-Taking Albuterol Active Breztri Aerosphere N ot-Taking Budesonide-Formoterol Fumarate Active Meloxicam 15 MG 1 tablet once daily oral with food for 90 days 11/17/2022 Not-Taking Breyna Active Montelukast Sodium A ctive Delsym Not-Taking Tessalon Perles Not- Taking Advil Active Tylenol otc/prn Not-Taking PROBLEMS Problem Type ICD Code Onset Dates Problem Status W/U Status Risk SNOMED Code Notes Problem Cervical myelopathy with cervical radiculopathy (M47.12) Active confirmed Problem DDD (degenerative disc disease), cervical (M50.30) Active confirmed Cervical d isc disorder (541581710) Problem HNP (herniated nucleus pulposus), cervical (M50.20) Active confirmed Displaceme nt of cervical intervertebral disc without myelopathy (10456827) Problem Degenerative joint disease (DJD) of lumbar spine (M47.816) Active confirmed Lumbosacral spondylosis without myelopathy (40182061) Problem Other spondylosis, lumbosacral region (M47.897) Active confirmed Lumbosacral spondylosis without myelopathy (37155904) Problem DDD (degenerative disc disease), lumbar (M51.36) Active confirmed Degenerative disc disease (29592206) Problem Scoliosis (M41.9) Active confirmed Scol iosis (487496398) Problem Bilateral primary osteoarthritis of hip (M16.0) Active confirmed Localized, primary osteoarthritis of the pelvic region and thigh (866453789) Problem 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 (07356956) Problem Osteoarthritis of right hip (M16.11) Active confirmed Localized, primary osteoarthritis of the pelvic region and thigh (724391258) VITAL SIGNS Height 62 in 03/25/2024 Weight 170 lbs 03/25/2024 BMI 31.09 kg/m2 03/25/2024 PROCEDURES Procedure Date Ordered Date Performed Result Body Sit e Lumbar Facet Joint Injection 03/25/2024 04/09/2024 faxed t o excel Encounters Encounter Location Date Provider Diagnosis [facility], [address] [place] [address] [address] [place] [address] 03/11/2024 Yash Kohli Other low back pain M54.59 ; Myalgia, other site M79.18 ; Disc Degeneration, Lumbar Region with Leg Pain M51.361 ; Degenerative joint disease (DJD) of lumbar spine M47.816 ; Scoliosis M41.9 ; Lumbar radiculopathy M54.16 ; Pain in right hip M25.551 ; Pain in left hip M25.552 ; Bilateral primary osteoarthritis of hip M16.0 and Osteopenia of lumbar spine M85.88 [facility], [address] [address] 02/26/2024 Yash Kohli [facility], [address] [address] 03/25/2024 Yash Kohli Degenerative joint disease (DJD) [...] office following completion of the MRI study. INTERMEDIATE/cp 03/11/2024 Myalgia, other site (ICD-10 - M79.18) [...] office following completion of the MRI study. INTERMEDIATE/cp 03/25/2024 Degenerative joint disease (DJD) of lumbar [...] PT. She will follow-up in 6-8 weeks. INTERMEDIATE/clm 03/11/2024 Disc Degeneration, Lumbar Region with Leg [...] office following completion of the MRI study. INTERMEDIATE/cp 03/25/2024 Other low back pain (ICD-10 - [...] PT. She will follow-up in 6-8 weeks. INTERMEDIATE/clm 03/11/2024 Degenerative joint disease (DJD) of lumbar [...] office following completion of the MRI study. INTERMEDIATE/ 03/25/2024 Disc Degeneration, Lumbar Region with Leg [...] PT. She will follow-up in 6-8 weeks. INTERMEDIATE/clm 03/11/2024 Scoliosis (ICD-10 - M41.9) <b>IMPRESSION:</b > [...] office following completion of the MRI study. INTERMEDIATE/cp 03/25/2024 Spinal stenosis of lumbar region with [...] PT. She will follow-up in 6-8 weeks. INTERMEDIATE/clm 03/11/2024 Lumbar radiculopathy (ICD-10 - M54.16) <b>IMPRESSION:</b [...] office following completion of the MRI study. INTERMEDIATE/cp 03/25/2024 Scoliosis (ICD-10 - M41.9) <b>IMPRESSION:</b > [...] PT. She will follow-up in 6-8 weeks. INTERMEDIATE/clm 03/11/2024 Pain in right hip (ICD-10 - [...] office following completion of the MRI study. INTERMEDIATE/cp 03/25/2024 Hip pain, right (ICD-10 - M25.551) [...] PT. She will follow-up in 6-8 weeks. INTERMEDIATE/clm 03/11/2024 Pain in left hip (ICD-10 - [...] office following completion of the MRI study. INTERMEDIATE/cp 03/25/2024 Osteoarthritis of right hip (ICD-10 - [...] PT. She will follow-up in 6-8 weeks. INTERMEDIATE/clm 03/11/2024 Bilateral primary osteoarthritis of hip (ICD-10 [...] office following completion of the MRI study. INTERMEDIATE/cp 03/25/2024 Osteopenia of spine (ICD-10 - M85.88) [...] PT. She will follow-up in 6-8 weeks. INTERMEDIATE/clm 03/11/2024 Osteopenia of lumbar spine (ICD-10 - [...] office following completion of the MRI study. INTERMEDIATE/cp PLAN OF TREATMENT Pending Test Test Name Order Date Urinalysis, Complete 07/15/2022 CBC With Differential/Platelet PT AND PTT 06/30/2022 Chem-Comprehensive 06/30/2022 Insurance Providers Payer Name Payer Address Payer Phone Subscriber Number Group Number Insured Name Patient Relationship to Insured Coverage Start Date Coverage End Date [employer] [address] [address] [place] [address] [id number] Rosalinda Galo Self - patient is the insured [facility] [address] [place] [address] [id number] IrajRosalinda Self - patient is the insured MEDICAL (GENERAL) HISTORY Medical History History ICD Code Shortness of breath COPD Chronic cough Parkinson's disease Neck pain Back pain Numbness in hands/feet Herniated disc neck/back Disc degeneration Facet DJD Denies h/o emotional/psychiatric disorde r Denies h/o drug/chemical dependency Surgical History Surgery Date(Month/Year) Tonsillectomy Cholecystectomy C4-C7 anterior cervical corpectomies and fusions 2022
[2025-01-17 12:34] LABS: Hemoglobin A1C 5.6 % (<5.7)
[2025-01-17 12:36] LABS: Cholesterol 184 mg/dL (0-200); HDL Direct 53 mg/dL; Triglycerides 153 mg/dL (<150)
== END 2025-01-17 11:35 | disposition home or self-care (01) ==
LOC: ANHLAB 11:36
PROVIDERS: PCP Family Medicine; Visit Provider Psychiatry & Neurology Neurology
DX: Z13.1 Encounter for screening for diabetes mellitus (principal); G20.A1 Parkinson's disease without dyskinesia, without mention of fluctuations; G31.84 Mild cognitive impairment of uncertain or unknown etiology; I10 Essential (primary) hypertension
CPT/HCPCS: 36415; 80061; 83036

== ENCOUNTER 2025-02-14 09:02 | Outpatient (CLI) | payer MEDICARE, SELFPAY ==
--- NOTE | ~2025-02-14 | MR_ITS ---
EXAMINATION: MR brain/brain stem wo con DATE: 02/14/2025 10:06 INDICATION: Parkinson's disease TECHNIQUE: Magnetic resonance imaging (MRI) of the brain and brainstem was performed without intravenous contrast. COMPARISON: None. FINDINGS: No mass, mass effect or hemorrhage seen. Moderately extensive periventricular T2 weighted hyperintense white matter changes and lesions are seen throughout both cerebral hemispheres. No areas of restricted diffusion however. No acute ischemia. Brainstem and cerebellum also with mild scattered foci of T2 weighted hyperintense white matter changes. Hippocampal regions appear symmetric. Para orbital, paranasal caliber structures appear within normal limits. IMPRESSION: Moderately extensive chronic microvascular ischemic appearing white matter changes with several T2-weighted hyperintense white matter lesions in both hemispheres which are probably associated with chronic end-stage ischemic changes. Reviewed, dictated and finalized at location [facility]. E [facility]IA[facility] IMPRESSION: Moderately extensive chronic microvascular ischemic appearing white matter changes with several T2-weighted hyperintense white matter lesions in b oth hemispheres which are probably associated with chronic end-stage ischemic c christianne.
--- OUTSIDE RECORDS SUMMARY | 2025-02-14 09:42 | XMS_ITS | Patient Health Record ---
Author Organization [facility] Address [address] [facility] [address] [place] [address] Support Name Relationship Address Phone Rosalinda Galo Guarantor Unknown [phone] Reason For Referral No Information Medications Medication [...] Insured Coverage Start Date Coverage End Date [facility] [address] [place], [place] [id number] Floyd Galo Spouse - patient is the spouse of the insured Medical (General) History Surgical History Surgery Date(Month/Year) Cholecystectomy Removal of tonsils (14488) Egd/endoscopy:reflux esophagitis 017 Colonoscopy:polyps, diverticulosis, hemo rrhoids 5 yr f/u 10/31/2016 Ercp duct stent placement (4 0234):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 Stents removed 02/17/2017. 02/15/2017
--- OUTSIDE RECORDS SUMMARY | 2025-02-14 09:43 | XMS_ITS | Encounter Summary ---
Author Organization [facility] Address [address] [place] [address] Phone Care Team Providers Care District Sales Manager Name Role Phone Rob Hung MD Primary Care Provider [phone] Encounter Details Date Type Department Care Team (Latest Contact Info) Description 11/17/2017 Orders Only [facility] Scanning, Provider Social History Tobacco Use Types Packs/Day Years Used Date Smoking Tobacco: Former Comments Unknown Sex and Gender Information Value Date Recorded Sex Assigned at Not on file Legal Sex Female 12:57 PM CONSERVATION EDUCATOR Gender Identity Female 12/29/2017 2:02 PM CDT [...] on filedocumented in this encounter Care Teams District Sales Manager Relationship Specialty Start Date End Date Rob Hung MD PCP - General 04/02/17 documented as of this encounter
--- OUTSIDE RECORDS SUMMARY | 2025-02-14 09:43 | XMS_ITS | Clinical Summary ---
Author Organization [facility] Address [address] [place] [address] Care Team Providers Care Seed Analysis Laboratory Assistant Name Role Phone Unavailable Primary Care Provider [...] Scan (General) 2019 COVID-19 Vaccine ( - 2024-2 6 season) 2024 Influenza Adult (#1) 2025 RSV Immunization or 60+ Years (1 - 1-dose 75+ series) 2029 Hepatitis A Vaccines Aged Out No long er eligible based on patient's age to complete this topic Meningococcal B Vaccine Aged Out No l onger eligible based on patient's age to complete this topic Meningococcal Vaccine Aged Out No tom christian eligible based on patient's age to complete this topic RSV Immunizations Under 20 Months Aged Out No longer eligible based on patient's age to complete this topic
--- OUTSIDE RECORDS SUMMARY | 2025-02-14 09:43 | XMS_ITS | Clinical Summary ---
Author Organization [facility] Address [address] [place] [address] Care Team Providers Care Clinical Laboratory Service Teacher Name Role Phone Rob Hung MD Primary Care Provider Allergies Active Allergy Reactions Criticality Noted Date [...] 40 mg tabletIndications: Coronary artery disease involving [place] coronary artery of [place] heart without angina pectoris,Mixed hyperlipidemia Take 1 tablet (40 mg total) by mouth daily 90 tablet 3 05/26/19 21 Active Additional Information Patient not taking.Reported on 09/21/2022 aspirin 81 mg enteric coated tabletIndications: Coronary artery disease involving [place] coronary artery of [place] heart without angina pectoris Take 1 tablet (81 mg total) by mouth daily 30 tablet 11 05/26/19 21 Active metoprolol XL (TOPROL-XL) 25 mg extended release tabletIndications: Coronary artery disease involving [place] coronary artery of [place] heart without angina pectoris Take 1 tablet [...] Headache 05/31/2020 Coronary artery disease invo lving [place] coronary artery of [place] heart without angina pectoris 05/14/2019 Mixed hyperlipidemia 08/08/2018 Precordial pain 08/08/2018 Gastroesophageal reflux disease without esophagi tis 08/08/2018 History of pancreatitis 08/08/2018 Severe persistent asthma without complication Recurrent acute pancreatitis 12/29/2017 Pancreatitis, unspecified pancreatitis type 12/03 Overview (12/29/2017): Added automatically from request for surgery [id number] Postmenopausal bleeding 06/23/2016 09/16/[address] of [...] on file Legal Sex Female 12:57 PM PARTY COORDINATOR Gender Identity Female 12/29/2017 2:02 PM CDT Sexual Orientation Not on file Occupation Industry Job Start Date Job End Date Retired Not on file Not on file Not on file Last Filed Vital Signs Vital Sign Reading Time Taken Comments Blood Pressure 131/74 09/21/2022 10:23 AM CDT Pulse 87 09/21/2022 10:23 AM CDT Temperature 36.7 C (98.1 F) 06/25/2018 12:27 PM CDT Respiratory Rate 16 08/08/2018 9:38 AM CDT Oxygen Saturation 96% 05/26/2020 11:48 AM PARTY COORDINATOR Inhaled Oxygen Concentration - - Weight 73 [...] Breast Bilateral Mammography Narrative 02/07/2018 8:12 AM PARTY COORDINATOR Mammogram Technique: Bilateral Full-Field Digital Screening Mammogram was performed. Views obtained: bilateral craniocaudal and bilateral mediolateral oblique. Computer Aided Detection was performed. Mammogram Findings: The present examination has been compared to prior imaging studies performed at [facility] on 08/28/2014, 09/17/2015 and 11/07/2016. The breasts [...] compared to prior imaging studies performed at [facility] on 08/28/2014, 09/17/2015 and 11/07/2016. The breasts are heterogeneously dense, which may obscure small masses. There is no suspicious abnormality in either breast. Impression: Annual screening mammography is recommended. OVERALL FINAL ASSESSMENT: BI-RADS CATEGORY 1: Negative. Jessica [facility] IMG MAMMO PROCEDURES Final Result from Last 3 Months or Most Recently Relevant to Health Maintenance Insurance MEDICARE [employer] [place] [employer] ACCESS CHOICE [place] MEDICARE [employer] ACCESS CHOICE [place] [facility] MEDICARE RAILROAD Advance Directives For more information, please contact: [phone] * Full Code (Latest Code Status on File) Date Activated Date Inactivated Comments 01/26/2018 9:40 AM 01/26/2018 1:25 PM Care Teams Clinical Laboratory Service Teacher Relationship Specialty Start Date End Date Rob Hung MD PCP - General 04/02/17
--- OUTSIDE RECORDS SUMMARY | 2025-02-14 09:43 | XMS_ITS | Encounter Summary ---
Author Organization [facility] Address [address] [place] [address] Phone Care Team Providers Care Machine Tool Builder Name Role Phone Rob Hung MD Primary [...] on file Legal Sex Female 12:57 PM VISCOSE DEPARTMENT WORKER Gender Identity Female 12/29/2017 2:02 PM [...] on filedocumented in this encounter Care Teams Machine Tool Builder Relationship Specialty Start Date End Date Rob Hung MD PCP - General 04/02/17 documented as of this encounter
--- OUTSIDE RECORDS SUMMARY | 2025-02-14 09:43 | XMS_ITS | Data Portability ---
Author Organization [facility] [place] Address [address] [place] [address] Assessment Encounter Date Assessment Date Assessment LastModified [...] None recorded. Imaging MAMMO, screening, bilateral 2019 [facility], [address], [place], [address], 05:01:05 DEXA, axial skeleton + vertebral fracture assessment 2019 [facility], [address], [place], [address], 05:01:05 Medication Orders None recorded. Patient TargetsNo targets recorded. Patient InstructionsNo instructions recorded. Reason for Referral None Reported. Results Created Date Observation Date Name Description Value Unit Range Abnormal Flag Note LastModifiedBy Organization Detail LastModifiedTime 10/08/1910/07/2020 MAMMO , scree flip, bilat eral No observ ation record ed. [email or web address] [facility] [address], [place], [address], 10/08/2020 11:23:45 10/08/19 21 10/07/2020 DEXA, axial skele ton + verte bral fract ure asses sment No observ ation record ed. [email or web address] [facility] [address], [place], [address], 10/22/2020 11:50:36 10/12/19 22 10/11/2021 MAMMO , scree flip, bilat eral No observ ation record ed. [email or web address] [facility] [address], [place], [address], 08/09/2022 10:42:26 Result Notes None recorded. Problems Name Problem SNOMED Code Status Onset Date Resolution Date Notes Provider Name and Address Organization Details Recorded Time Leukopeni a 16568506 Active 2010 LEUKOCYTOP ENIA NOS;Practi ce ID: 0001 Not Available [facility] 0 14:39:21 Pre-surge ry evaluatio n Active 2010 Pre-operat ariela examinatio n, unspecifie d;Practice ID: 0001 Not Available [facility] 0 14:39:21 Dysfuncti onal uterine bleeding Active 2010 DUB;Practi ce ID: 0001 Not Available [facility] 0 14:39:21 Adult health examinati on Active 2010 Routine Medical Exam;Recor ded Elsewhere: No Locatio n: [facility]ce: EHR Chroni c: N Practice ID: 0001 Billa ble Time: 10:45:00 AM Not Available [facility] 0 14:39:20 Urinary tract infectiou s disease 92940935 Active 2011 Urinary Tract Infection; Recorded Elsewhere: No Locatio n: [facility]ce: EHR Chroni c: N Practice ID: 0001 Billa ble Time: 03:00:00 PM Not Available [facility] 0 14:39:19 Increased frequency of urination 180331668 Active 2011 Urinary frequency; Recorded Elsewhere: No Locatio n: [facility]ce: EHR Chroni c: N Practice ID: [...] Available [facility] 0 14:39:18 Microscop ic hematuria 101115460 Active 2013 HEMATURIA MICROSCOPI C;Practice ID: 0001 Not Available [facility] 0 14:39:18 Leukocyto sis 383553244 Active 2014 LEUKOCYTOS IS NOS;Practi ce ID: 0001 Not Available [facility] 0 14:[facility]:[address] Concept Active 2015 Encntr for remnants cutter exam (general) (routine) w/o abn findings;P ractice ID: 0001 Not Available [facility] 0 14:[facility]:[address] Concept Active 2015 Encntr for general adult medical exam w/o abnormal findings;R ecorded Elsewhere: No Locatio n: [facility]ce: EHR Chroni c: N Practice ID: 0001 Billa ble Time: 01:00:00 PM Not Available [facility] 0 14:39:19 Postmenop ausal bleeding 97771974 Active 2016 Postmenopa usal bleeding;P ractice ID: 0001 Not Available [facility] 0 14:39:18 Menopause present 474589473 Active 2017 Symptoms such as flushing, sleeplessn ess, headache, lack of concentrat ion, associated with natural (age-relat ed) menopause; Recorded Elsewhere: No Locatio n: [facility]ce: EHR Chroni c: N Practice ID: 0001 Billa ble Time: 10:15:00 AM Not Available [facility] 0 14:39:19 Problem Notes None recorded. Procedures Surgical History Date Name Laterality Status Provider Name and Address Organization Details Recorded Time Cholecystectomy completed [facility] 02/18/2020 10:14:46 tonsillectomy and adenoidectomy completed [facility] 02/18/2020 10:14:[address] [facility] 02/18/2020 10:15:01 cataract surgery completed [facility] 02/18/2020 10:15:21 endoscopy completed [facility] 02/18/2020 10:15:40 cholangioscopy completed [facility] 02/18/2020 10:15:50 echocardiography completed [facility] 02/18/2020 10:16:04 Imaging Results None [...] Prescrib ed Elsewher e: No Locat ion: [facility] odify By: smclizy Ponce r DateTime [...] Prescrib ed Elsewher e: No Locat ion: [facility] odify By: aric Alanizou nter DateTime : 01/25/20 11 10:45:00 AM Not Available Not Available Not Available cetirizin e 10 mg tablet take 1 tablet by oral route every day 2018 active Prescrib ed Elsewher e: Yes Loca tion: Dodie gardner [facility] odify By: shree morales DateTime : 10/09/19 19 03:00:00 PM Not Available Not Available Not Available nitroglyc julee 0.3 mg sublingua l tablet place 1 tablet by sublingu al route at the first sign of an attack; no more than 3 tabs are recommen ded within a 15 minute period. 2018 active Prescrib ed Elsewher e: Yes Loca tion: Dodie gardner [facility] odify By: shree morales DateTime : 10/09/19 [...] Elsewher e: No Locat ion: Dodie gardner [facility] odify By: noa morales DateTime : 10/09/19 19 03:00:00 PM Not Available Not Available Not Available metoprolo l succinate ER 100 mg tablet,ex tended release 24 hr take 1 tablet by oral route every day 2018 active Prescrib ed Elsewher e: Yes Loca tion: Dodie gardner [facility] odify By: shree morales DateTime : 10/09/19 19 03:00:00 PM Not Available Not Available Not Available omeprazol e 40 mg capsule,d elayed release TAKE 1 CAPSULE BY MOUTH ONCE DAILY active Not Available Not Available No t Available Nexium 20 mg capsule,d elayed release take 1 capsule by oral route every day 10/08 completed Prescrib ed Elsewher e: Yes Loca tion: Dodie gardner [facility] odify By: shree morales DateTime : 08/09/19 14 01:30:00 PM Not Available Not Available Not Available Metrogel Vaginal 0.75 % (37.5 mg/5 gram) insert 1 applicat orful (37.5MG) by vaginal route every day at bedtime 08/08 completed Prescrib ed Elsewher e: No Locat ion: Dodie gardner [facility] odify By: johana ruiz DateTime : 04/23/19 13 03:03:23 PM Not Available Not Available Not Available estradiol 1 mg tablet take 1 tablet by oral route every day 02/08 completed Prescrib ed Elsewher e: No Locat ion: Dodie gardner [facility] odify By: cate ruiz DateTime : 11/17/19 16 09:31:20 AM Not Available Not Available Not Available amitripty line 10 mg tablet take 1 tablet by oral route 3 times every day 06/23 completed Prescrib ed Elsewher e: Yes Loca tion: Dodie gardner [facility] odify By: cate ruiz DateTime : 08/09/19 [...] Elsewher e: No Locat ion: Dodie gardner [facility] odify By: daltony Ponce oh DateTime : 12/14/19 11 12:00:00 PM Not Available Not Available Not Available Advil 100 mg tablet take 2 tablet by oral route every 4 - 6 hours as needed with food 10/08 completed Prescrib ed Elsewher e: Yes Loca tion: Dodie gardner [facility] odify By: amkuhl Kendra cruzunter DateTime : 08/19/19 15 01:00:00 PM Not Available Not Available Not Available Cipro 500 mg tablet take 1 tablet (500MG) by oral route every 12 hours 08/08 completed Prescrib ed Elsewher e: No Locat ion: Dodie gardner [facility] odify By: johana ruiz DateTime : 02/08/20 11 10:40:40 AM Not Available Not Available Not Available nitroglyc julee 0.4 mg sublingua l tablet active Not Available Not Available Not Available aspirin 81 mg chewable tablet chew 1 tablet by oral route every day 2018 active Prescrib ed Elsewher e: Yes Loca tion: Dodie gardner [facility] odify By: shree morales DateTime : 10/09/19 [...] Elsewher e: No Locat ion: Dodie gardner [facility] odify By: shree morales DateTime : 08/25/19 18 10:15:00 AM Not Available Not Available Not Available fluticaso ne propionat e 50 mcg/actua tion nasal spray,malka pension spray 1 spray by intranas al route every day in each nostril 2018 active Prescrib ed Elsewher e: Yes Loca tion: Dodie gardner [facility] odify By: shree morales DateTime : 10/09/19 [...] Elsewher e: No Locat ion: Dodie gardner [facility] odify By: johana ruiz DateTime : 09/11/19 14 03:54:59 PM Not Available Not Available Not Available Vitamin D3 25 mcg (1,000 unit) tablet 2018 active Prescrib ed Elsewher e: Yes Loca tion: Dodie gardner [facility] odify By: shree morales DateTime : 10/09/19 19 03:00:00 PM Not Available Not Available Not Available Sleep Aid (doxylami ne) 25 mg tablet 2018 active Prescrib ed Elsewher e: Yes Loca tion: Dodie gardner [facility] odify By: shree cruzunter DateTime : 10/09/19 19 03:00:00 PM Not Available Not Available Not Available EEMT HS 0.625 mg-1.25 mg tablet take 1 tablet by oral route for 21 consecut ariela days, followed by 7 days off 08/24 completed Prescrib ed Elsewher e: No Locat ion: Dodie gardner [facility] odify By: aric Smith nter DateTime : 09/14/19 16 01:00:00 PM Not Available Not Available Not Available aspirin active Not Available Not Avail able Not Available omeprazol e 20 mg tablet,de layed release 2018 active Prescrib ed Elsewher e: Yes Loca tion: Dodie gardner [facility] odify By: shree cruzunter DateTime : 10/09/19 19 03:00:00 PM Not Available Not Available Not Available Body, Hair, Skin and Nails active Not Available Not Available Not Available Prevnar 13 (PF) 0.5 mL intramusc ular syringe ADM 0.5ML IM UTD 02/17 completed Not Available Not Available Not Available biotin 1 mg capsule 2018 active Prescrib ed Elsewher e: Yes Loca tion: Dodie gardner [facility] odify By: shree morales DateTime : 10/09/19 [...] Elsewher e: Yes Loca tion: Janki kendra [facility] odify By: shree cruzunter DateTime : 10/09/19 [...] Updated DateTime 02/18/2020 150/85 mm[Hg] Beatriz Estrada [facility] [address], [place], [address], [facility] 02/18/2020 10:37:12 Date Recorded Body height Body mass index (BMI) Body weight Systolic And Diastolic Provider Name and Address Organization Details Last Updated DateTime 02/18/2020 162.56 cm 28.5 kg/m2 53271.33 g 154/68 mm[Hg] Catherine Ayala [facility] 02/18/2020 10:12:46 Social History None [...] ICD10 Code Diagnosis IMO Codes Diagnosis Note [id number] Beatriz Estrada , [facility] [address] [address] 02/18/2020 09:50:19 02/18/2020 10:55:18 Gynecologic examination 44165574 Z01.419 Take Calcium with Vitamin D 12-1500mg daily. Do monthly self breast exams. It is advised to get annual flu shot in the fall and she could obtain at [facility] or [facility] clinic. If you haven't received [...] 1 year or PRN Postmenopa usal osteopenia [id number] M85.80 Screening mammography 24 032007 Z12.31 Health Concerns Section Related Observation LastModified by Organization Detai ls LastModified Time None Recorded Concern Status LastModified by Organization Details LastModified Time None Recorded Advance Directives Directive None Recorded Payers Insurance Date Sequence Insurance Name Policy Number Policy Cuevas Covered Member ID Cuevas Member ID Guarantor Name 02/19/2020 GRACE A - MEDICARE-[employer] (MEDICARE) Rosalinda Galo [id number] 2 06/19/2020 1 [place] Rosalinda Galo [id number] 2 Notes Date Note Type Note Provider [...] regular mammograms starting age 40. Beatriz Estrada, [facility]- [address], [place], [address], [facility] 02/18/2020 10:51:02 OBGyn Episode No OBEpisode recorded.
--- OUTSIDE RECORDS SUMMARY | 2025-02-14 09:43 | XMS_ITS | Encounter Summary ---
Author Organization [facility] Address [address] [place] [address] Phone Care Team Providers Care General Production Worker Name Role Phone Rob Hung MD Primary Care Provider + [phone] Rob Hung MD Primary Care Provider [phone] Orville Brewster MD Primary Care Provider + [phone] Rob Hung MD Primary Care Provider + [phone] Encounter Details Date Type Department Care Team (Latest Contact Info) Description 06/15/2015 Orders Only [facility] Scanning, Provider Social History Tobacco Use Types Packs/Day Years Used Date Smoking Tobacco: Former Comments Unknown Sex and Gender Information Value Date Recorded Sex Assigned at Not on file Legal Sex Female 12:57 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
== END 2025-02-14 09:03 | disposition home or self-care (01) ==
PROVIDERS: PCP Family Medicine; Visit Provider Psychiatry & Neurology Neurology
DX: I67.82 Cerebral ischemia (principal); R90.89 Other abnormal findings on diagnostic imaging of central nervous system; R90.82 White matter disease, unspecified; G20.A1 Parkinson's disease without dyskinesia, without mention of fluctuations
CPT/HCPCS: 70551